=== PATIENT | male | born 1945 | race American Indian/Alaskan Native ===

== ENCOUNTER 2022-01-24 17:51 | Inpatient (IN) | payer MEDICARE ==
[2022-01-24 18:45] LABS: Basophils # (Auto) 0.1 K/mm3 (0.0-0.1); Basophils % (Auto) 0.8 % (0.0-1.8); Eosinophils % (Auto) 0.3 % (0.0-4.3); Hematocrit 24.4 % (35.5-45.6); Hemoglobin 7.8 gm/dl (11.8-15.2); Lymphocytes # (Auto) 0.8 K/mm3 (1.2-5.4); Lymphocytes % (Auto) 8.3 % (13.4-35.0); Mean Corpuscular HGB Conc 32 % (32-34); Monocytes # (Auto) 0.9 K/mm3 (0.0-0.8); Monocytes % (Auto) 8.5 % (0.0-7.3); Platelet Count 341 K/mm3 (140-440); Red Blood Count 3.73 M/mm3 (3.65-5.03); Red Cell Distribution Width 15.5 % (13.2-15.2)
[2022-01-24 18:55] LABS: INR 1.07 (0.87-1.13)
[2022-01-24 18:56] LABS: Partial Thromboplastin Time 52.4 Sec. (24.2-36.6)
[2022-01-24 18:57] LABS: Mean Corpuscular Volume 66 fl (84-94)
--- NOTE | 2022-01-24 19:21 | Cat Scan Report ---
CT BRAIN: 01/24/2022 INDICATION / CLINICAL INFORMATION: neuro deficits <6hrs or sx present upon awakening. No specific information provided COMPARISON: None available. FINDINGS: BRAIN/INTRACRANIAL STRUCTURES: Unenhanced CT images of the brain were obtained. There is no evidence of acute abnormality. Diffuse cerebral atrophy and chronic microangiopathic white matter hypoattenuation is present. There is evidence of old lacunar infarct in the right basal ganglia. EXTRACRANIAL STRUCTURES: Unremarkable. IMPRESSION: No acute abnormality. Chronic and age-related changes. No CT correlate for "neuro deficits, unspecified" Notification attempt: disconnected by ED [address] scans at this location are performed using dose reduction to ALARA by means of automated expos ure control. Signer Name: Ward Middleton MD Signed: 01/24/2022 7:17 PM Workstation Name: [id number]
--- NOTE | 2022-01-24 19:43 | Emergency Department Report ---
Blank Doc - Documentation Documentation: [facility] Consult Note # Demographics Consult Type: Acute Stroke Level 2 (4.5-24 hrs) Patient Location: Emergency Room First Name: Daron Last Name: Loy Date of : 1945 Age: 76 Gender: Male Facility: [facility] Time of Initial Page (Eastern Time): 01/24/2022, 19:09 Time of Return Call (Eastern Time): 01/24/2022, 19:09 # HPI History: 76 year old male with hx of DM, HLD, HTN with symptoms that started last night with vertigo and hearing loss in right ear. Patient states he felt his heart racing last night which is what woke him up. He noticed at that time that he cant hear out of right ear. Denies other symptoms. Last Known Normal: last night # Scores Level of Consciousness 1a: [0] = Alert; keenly responsive LOC Questions 1b: [0] = Answers both questions correctly LOC Commands 1c: [0] = Performs both tasks correctly Best Gaze 2: [0] = Normal Visual 3: [0] = No visual loss Facial Palsy 4: [0] = Normal symmetrical movements Motor Arm Left 5a: [0] = No drift Motor Arm Right 5b: [0] = No drift Motor Leg Left 6a: [1] = Drift Motor Leg Right 6b: [0] = No drift Limb Ataxia 7: [0] = Absent Sensory 8: [0] = Normal Best Language 9: [0] = No aphasia Dysarthria 10: [0] = Normal Extinction and Inattention 11: [0] = No abnormality NIHSS Total: 1 # Exam Additional Exam Findings: right side hearing loss # PMH-FH-SH Past Medical History: Diabetes hyperlipidemia hypertension Social History: non-smoker non-drinker no drugs lives with family # Data Head CT: no bleed per radiologist read # Assessment Impression: Concern for posterior circulation stroke. Recommendation for DAPT however given low HgB, recommend to rule out any GI bleed prior to starting ASA + Plavix. Rule out Afib given hx of palpitations. Holter monitor. # Plan Thrombolytic/Intervention: Possible IA candidate Thrombolytic Exclusion: > 4.5 hours Possible IA Candidate: CTA pending Blood Pressure Management: IV fluid bolus Target Blood Pressure: SBP < 220 DBP < 105 Labs: CBC comprehensive metabolic panel hemoglobin A1c lipid panel troponin TSH ua Imaging: (urgency: STAT): CT Head without contrast CT Angiogram Head and CT Angiogram Neck Imaging: (urgency: routine): MRI Brain without contrast Diagnostic Test: echo with bubble study Medication: aspirin 81 mg PLUS clopidogrel (Plavix) 75 mg for 21 days, then monotherapy therafter start statin with goal of LDL < 70 Other: If patient has any neurological deterioration please call me back immediately permissive hypertension telemetry monitoring I have discussed my recommendations with the referring provider Permissive HTN for 24 hours # Demographics First Name: Daron Last Name: Loy Facility: [facility]
--- NOTE | 2022-01-24 19:53 | XRay Report ---
XR chest 1V ap INDICATION / CLINICAL INFORMATION: Dyspnea. COMPARISON: None available. FINDINGS: SUPPORT DEVICES: None. HEART /PULMONARY VASCULATURE: No significant abnormality. LUNGS / PLEURA: No significant pulmonary or pleural abnormality. No pneumothorax. ADDITIONAL FINDINGS: No significant additional findings. IMPRESSION: 1. No acute findings. Signer Name: Arsh Allen MD Signed: 01/24/2022 7:48 PM Workstation Name: [id number]
[2022-01-24 20:21] LABS: Calcium 10.2 mg/dL (8.4-10.2)
[2022-01-24 20:35] LABS: Albumin 3.5 g/dL (3.9-5)
[2022-01-24 21:03] LABS: BUN/Creatinine Ratio 13; Blood Urea Nitrogen 45 mg/dL (9-20); Calcium 10.2 mg/dL (8.4-10.2); LDL Cholesterol,Direct 90 mg/dL (50-130)
[2022-01-24 21:04] LABS: Chol/HDL Ratio 3.62 %; HDL Cholesterol 43 mg/dL (40-59)
--- NOTE | 2022-01-24 21:25 | Cat Scan Report ---
CT angio head, CT angio neck INDICATION / CLINICAL INFORMATION: stroke sx. TECHNIQUE: CT angiography of the head and neck was performed following administration of 100 cc Omnip aque 350 intravenous contrast. In addition to axial source images, coronal and sagittal thin slab MIP reconstructions were provided. Additional 3-D volumetric reconstructions of vasculature were provide d. All CT scans at this location are performed using CT dose reduction for ALARA by means of automate d exposure control. Calculation of stenosis will be made using direct NASCET criteria. COMPARISON: None available. FINDINGS: VASCULAR FINDINGS: NECK: AORTA: The aorta demonstrates normal branch morphology. No acute aortic pathology. No severe stenosi s of great vessel origins. GREAT VESSELS: No significant abnormality demonstrated involving great vessels. VERTEBRAL ARTERIES: Vertebral origins are patent. The bilateral V2 segments demonstrate no significan t abnormality. RIGHT CAROTID: Calcified plaque in the bifurcation of the right common carotid artery extends within the right proximal cervical segment ICA results in no significant stenosis. LEFT CAROTID: Scattered intimal calcifications noted along the left common carotid artery and at the bifurcation, no significant stenosis. VENOUS STRUCTURES: No significant abnormality of the jugular veins is demonstrated. INTRACRANIAL CIRCULATION: RIGHT ICA: Heterogeneous hypoattenuation within the vessel lumen thought to be artifactual. No dissec tion. No aneurysm. Moderate diffuse intimal calcification of the cavernous and clinoid segments witho ut evidence of severe stenosis. RIGHT PATRICIA: The right anterior cerebral artery demonstrates no evidence of aneurysm, severe stenosis, or occlusion. RIGHT MCA: The right MCA demonstrates no evidence of large vessel occlusion, aneurysm formation, or s evere stenosis. LEFT ICA: Heterogeneous intraluminal hypoattenuation compatible with artifact. No dissection. Moderat e diffuse intimal calcification of the cavernous and clinoid segment without significant stenosis. LEFT PATRICIA: The left PATRICIA demonstrates no evidence of aneurysm formation, occlusion, or severe stenosis. LEFT MCA: The left MCA demonstrates no evidence of large vessel occlusion, aneurysm formation, or sev ere stenosis. ANTERIOR COMMUNICATING ARTERY: No significant abnormality. POSTERIOR COMMUNICATING ARTERIES: The posterior communicating arteries demonstrate no significant abn ormalities. VERTEBRAL CONFLUENCE: The vertebral confluence demonstrates no significant abnormality. BASILAR ARTERY: Basilar artery demonstrates no significant abnormality. Bifurcation and bilateral P1 segments demonstrate patency without evidence of aneurysm formation, significant stenosis, or occlusi on. RIGHT CASH MANAGER: The right CASH MANAGER demonstrates no evidence of occlusion, aneurysm formation, or severe stenosi s. LEFT CASH MANAGER: The left CASH MANAGER demonstrates no evidence of occlusion, aneurysm formation, or severe stenosis. DURAL SINUSES AND CORTICAL DURAL VEINS: The dural sinuses and cortical dural veins demonstrate no sig nificant abnormalities. NONVASCULAR FINDINGS: Small lacunar infarction right basal ganglia. The intracranial contents, intraorbital contents, paran young sinuses, mastoid air cells, soft tissues and musculature of the face, soft tissues and musculatu re of the neck, thyroid, and upper chest demonstrate no significant abnormalities. IMPRESSION: 1. No evidence of large vessel occlusion, aneurysm formation, or severe stenosis involving the anteri or or posterior intracranial circulation. The cervical arterial structures demonstrate no significant abnormalities. 2. The dural sinuses and cortical epidural veins as well as the cervical venous structures demonstrat e no significant abnormality. 3. Nonvascular structures demonstrate no significant abnormality. CODE STROKE Time of Communication (TAMALE MACHINE FEEDER/CDT): 2019 hours Licensed Practitioner Receiving Report: Dr. Lincoln Signer Name: Dioni Lemon II, MD Signed: 01/24/2022 9:21 PM Workstation Name: [id number]
--- NOTE | 2022-01-24 21:25 | Cat Scan Report ---
CT angio head, CT angio neck INDICATION / CLINICAL INFORMATION: stroke sx. TECHNIQUE: CT angiography of the head and neck was performed following administration of 100 cc Omnip aque 350 intravenous contrast. In addition to axial source images, coronal and sagittal thin slab MIP reconstructions were provided. Additional 3-D volumetric reconstructions of vasculature were provide d. All CT scans at this location are performed using CT dose reduction for ALARA by means of automate d exposure control. Calculation of stenosis will be made using direct NASCET criteria. COMPARISON: None available. FINDINGS: VASCULAR FINDINGS: NECK: AORTA: The aorta demonstrates normal branch morphology. No acute aortic pathology. No severe stenosi s of great vessel origins. GREAT VESSELS: No significant abnormality demonstrated involving great vessels. VERTEBRAL ARTERIES: Vertebral origins are patent. The bilateral V2 segments demonstrate no significan t abnormality. RIGHT CAROTID: Calcified plaque in the bifurcation of the right common carotid artery extends within the right proximal cervical segment ICA results in no significant stenosis. LEFT CAROTID: Scattered intimal calcifications noted along the left common carotid artery and at the bifurcation, no significant stenosis. VENOUS STRUCTURES: No significant abnormality of the jugular veins is demonstrated. INTRACRANIAL CIRCULATION: RIGHT ICA: Heterogeneous hypoattenuation within the vessel lumen thought to be artifactual. No dissec tion. No aneurysm. Moderate diffuse intimal calcification of the cavernous and clinoid segments witho ut evidence of severe stenosis. RIGHT PATRICIA: The right anterior cerebral artery demonstrates no evidence of aneurysm, severe stenosis, or occlusion. RIGHT MCA: The right MCA demonstrates no evidence of large vessel occlusion, aneurysm formation, or s evere stenosis. LEFT ICA: Heterogeneous intraluminal hypoattenuation compatible with artifact. No dissection. Moderat e diffuse intimal calcification of the cavernous and clinoid segment without significant stenosis. LEFT PATRICIA: The left PATRICIA demonstrates no evidence of aneurysm formation, occlusion, or severe stenosis. LEFT MCA: The left MCA demonstrates no evidence of large vessel occlusion, aneurysm formation, or sev ere stenosis. ANTERIOR COMMUNICATING ARTERY: No significant abnormality. POSTERIOR COMMUNICATING ARTERIES: The posterior communicating arteries demonstrate no significant abn ormalities. VERTEBRAL CONFLUENCE: The vertebral confluence demonstrates no significant abnormality. BASILAR ARTERY: Basilar artery demonstrates no significant abnormality. Bifurcation and bilateral P1 segments demonstrate patency without evidence of aneurysm formation, significant stenosis, or occlusi on. RIGHT FILL MANAGER: The right FILL MANAGER demonstrates no evidence of occlusion, aneurysm formation, or severe stenosi s. LEFT FILL MANAGER: The left FILL MANAGER demonstrates no evidence of occlusion, aneurysm formation, or severe stenosis. DURAL SINUSES AND CORTICAL DURAL VEINS: The dural sinuses and cortical dural veins demonstrate no sig nificant abnormalities. NONVASCULAR FINDINGS: Small lacunar infarction right basal ganglia. The intracranial contents, intraorbital contents, paran young sinuses, mastoid air cells, soft tissues and musculature of the face, soft tissues and musculatu re of the neck, thyroid, and upper chest demonstrate no significant abnormalities. IMPRESSION: 1. No evidence of large vessel occlusion, aneurysm formation, or severe stenosis involving the anteri or or posterior intracranial circulation. The cervical arterial structures demonstrate no significant abnormalities. 2. The dural sinuses and cortical epidural veins as well as the cervical venous structures demonstrat e no significant abnormality. 3. Nonvascular structures demonstrate no significant abnormality. CODE STROKE Time of Communication (PRACTICE OFFICE ASSOCIATE/CDT): 2019 hours Licensed Practitioner Receiving Report: Dr. Lincoln Signer Name: Dioni Lemon II, MD Signed: 01/24/2022 9:21 PM Workstation Name: [id number]
--- NOTE | 2022-01-24 22:43 | Emergency Department Report ---
ED General Adult HPI - General Chief complaint: Dizziness Stated complaint: HEARING LOSS/WEIGHT LOSS/BALANCE PUI?: No Time Seen by Provider: 01/24/22 19:14 Source: patient Mode of arrival: Ambulatory Limitations: No Limitations - History of Present Illness Initial comments: pt reports he has deminished hearing the right ear since last night. pt reports he experiences severe dizziness with positional changes and changes of his head position. pt denies chest pain or SOB. Pt denies dizziness while sitting in wheelchair in triage. pt has no noted weakness and no reported numbness or tingling. Pt denies visual deficits. pt denies ear pain or prior episodes of hearing loss or vertigo. -: Gradual, hour(s) Radiation: non-radiation Consistency: intermittent Improves with: none Worsens with: none Associated Symptoms: denies: denies other symptoms, confusion, chest pain, cough, diaphoresis, headaches, loss of appetite, malaise, nausea/vomiting - Related Data Home Medications Medication Instructions Recorded Confirmed Last Taken Glimepiride [Amaryl] 4 mg PO BID 01/14/15 01/14/15 01/13/15 Hydralazine HCl [Apresoline TAB] 100 mg PO BID 01/14/15 01/14/15 01/13/15 Lovastatin [Altoprev] 40 mg PO QPM 01/14/15 01/14/15 01/13/15 amLODIPine [Norvasc] 10 mg PO DAILY 01/14/15 01/14/15 01/13/15 metFORMIN [Glucophage] 500 mg PO BID 01/14/15 01/14/15 01/13/15 Previous Rx's Medication Instructions Recorded Last Taken Type Famotidine [Pepcid] 20 mg PO BID 5 Days tablet 01/14/15 Unknown Rx diphenhydrAMINE [Benadryl CAP] 50 mg PO Q8HR 5 Days capsule 01/14/15 Unknown Rx predniSONE [Deltasone] 20 mg PO QDAY 5 Days tab 01/14/15 Unknown Rx Allergies Allergy/AdvReac Type Severity Reaction Status Date / Time Tetracyclines Allergy Unknown Verified 01/14/15 08:42 venom-honey bee Allergy Unknown Verified 01/14/15 08:42 [bee venom (honey bee)] ED Review of Systems ROS: Stated complaint: HEARING LOSS/WEIGHT LOSS/BALANCE Other details as noted in HPI Constitutional: denies: chills, fever Eyes: denies: eye pain, eye discharge, vision change ENT: denies: ear pain, throat pain Respiratory: denies: cough, shortness of breath, wheezing Cardiovascular: denies: chest pain, palpitations Endocrine: no symptoms reported Gastrointestinal: denies: abdominal pain, nausea, diarrhea Genitourinary: denies: urgency, dysuria Musculoskeletal: denies: back pain, joint swelling, arthralgia Skin: denies: rash, lesions Neurological: denies: headache, weakness, paresthesias Psychiatric: denies: anxiety, depression Hematological/Lymphatic: denies: easy bleeding, easy bruising ED Past Medical Hx - Past Medical History Hx Hypertension: Yes Hx Diabetes: Yes (diet controlled) - Social History Smoking Status: Never Smoker - Medications Home Medications: Home Medications Medication Instructions Recorded Confirmed Last Taken Type Famotidine [Pepcid] 20 mg PO BID 5 Days tablet 01/14/15 Unknown Rx Glimepiride [Amaryl] 4 mg PO BID 01/14/15 01/14/15 01/13/15 History Hydralazine HCl [Apresoline TAB] 100 mg PO BID 01/14/15 01/14/15 01/13/15 History Lovastatin [Altoprev] 40 mg PO QPM 01/14/15 01/14/15 01/13/15 History amLODIPine [Norvasc] 10 mg PO DAILY 01/14/15 01/14/15 01/13/15 History diphenhydrAMINE [Benadryl CAP] 50 mg PO Q8HR 5 Days capsule 01/14/15 Unknown Rx metFORMIN [Glucophage] 500 mg PO BID 01/14/15 01/14/15 01/13/15 History predniSONE [Deltasone] 20 mg PO QDAY 5 Days tab 01/14/15 Unknown Rx ED Physical Exam - General Limitations: No Limitations General appearance: alert, in no apparent distress - Head Head exam: Present: atraumatic, normocephalic - Eye Eye exam: Present: normal appearance - ENT ENT exam: Present: mucous membranes moist - Neck Neck exam: Present: normal inspection - Respiratory Respiratory exam: Present: normal lung sounds bilaterally. Absent: respiratory distress - Cardiovascular Cardiovascular Exam: Present: regular rate, normal rhythm. Absent: systolic murmur, diastolic murmur, rubs, gallop - GI/Abdominal GI/Abdominal exam: Present: soft, normal bowel sounds - Rectal Rectal exam: Present: deferred - Extremities Exam Extremities exam: Present: normal inspection - Back Exam Back exam: Present: normal inspection - Neurological Exam Neurological exam: Present: alert, oriented X3 - Psychiatric Psychiatric exam: Present: normal affect, normal mood - Skin Skin exam: Present: warm, dry, intact, normal color. Absent: rash ED Course Vital Signs 01/24/22 18:20 Temperature 98.3 F Pulse Rate 97 H Respiratory 18 Rate Blood Pressure 159/62 O2 Sat by Pulse 98 Oximetry ED Medical Decision Making - Lab Data Result diagrams: 01/24/22 18:36 01/24/22 19:00 - EKG Data -: EKG Interpreted by Me EKG shows normal: sinus rhythm - Radiology Data Radiology results: report reviewed, image reviewed - Medical Decision Making stroke alert , CT head negative neurology assessed patient will admit after negative CTA for stroke work up Critical care attestation.: If time is entered above; I have spent that time in minutes in the direct care of this critically ill patient, excluding procedure time. ED Disposition Clinical Impression: Dizziness, CVA (cerebral vascular accident) Disposition: ADMITTED INPATIENT Is pt being admited?: Yes Does the pt Need Aspirin: No Condition: Stable Forms: Accompanied Note
[2022-01-24] MEDS ORDERED: MORPHINE 4 MG/1 ML INJ IV PRN ×2 (22:55)
[2022-01-24] MEDS ORDERED: MORPHINE 2 MG/1 ML INJ IV PRN ×2 (22:55)
[2022-01-24] MEDS ORDERED: PROMETHAZINE 25 MG RECT SUPP PR PRN (22:55)
[2022-01-24] MEDS ORDERED: ACETAMINOPHEN 325 MG TAB PO PRN ×2 (22:55)
[2022-01-24] MEDS ORDERED: ONDANSETRON 4 MG/2 ML INJ IV PRN ×2 (22:55)
[2022-01-24] MEDS ORDERED: MAGNESIUM HYDROXIDE (MOM) ORAL LIQD UDC PO PRN ×2 (22:55)
[2022-01-24] MEDS ORDERED: METOCLOPRAMIDE 10 MG TAB PO PRN (22:55)
--- NOTE | 2022-01-24 23:13 | History and Physical Report ---
History of Present Illness Date of examination: 01/24/22 Date of admission: 01/24/2022 Chief complaint: Dizziness History of present illness: 76-year-old male with known history of hypertension and diet-controlled diabetes mellitus presents to the emergency room today complaining of loss of hearing on the right side of his ear. He has also been having severe dizziness whenever he changes position. He denies any headache, no fever or chills, no diaphoresis. Denies any chest pain or shortness of breath. No nausea vomiting no abdominal pain. Denies any blurry vision, denies any weakness or tingling sensation in any of the extremities. Symptoms have been ongoing for about 24 hours. Work-up in the emergency room today, CT of the head shows chronic and age- related changes otherwise no acute findings. CTA head and neck were unremarkable Chest x-ray shows no acute findings. Consult was placed to the teleneurologist by the ER physician and recommendation was to have patient worked up for possible CVA. Past History Past Medical History: diabetes (Diet Controlled), hypertension Past Surgical History: No surgical history Social history: no significant social history Medications and Allergies Allergies Allergy/AdvReac Type Severity Reaction Status Date / Time Tetracyclines Allergy Unknown Verified 01/14/15 08:42 venom-honey bee Allergy Unknown Verified 01/14/15 08:42 [bee venom (honey bee)] Home Medications Medication Instructions Recorded Confirmed Last Taken Type Famotidine [Pepcid] 20 mg PO BID 5 Days tablet 01/14/15 Unknown Rx Glimepiride [Amaryl] 4 mg PO BID 01/14/15 01/14/15 01/13/15 History Hydralazine HCl [Apresoline TAB] 100 mg PO BID 01/14/15 01/14/15 01/13/15 History Lovastatin [Altoprev] 40 mg PO QPM 01/14/15 01/14/15 01/13/15 History amLODIPine [Norvasc] 10 mg PO DAILY 01/14/15 01/14/15 01/13/15 History diphenhydrAMINE [Benadryl CAP] 50 mg PO Q8HR 5 Days capsule 01/14/15 Unknown Rx metFORMIN [Glucophage] 500 mg PO BID 01/14/15 01/14/15 01/13/15 History predniSONE [Deltasone] 20 mg PO QDAY 5 Days tab 01/14/15 Unknown Rx Active Meds: Active Medications Acetaminophen (Acetaminophen 325 Mg Tab) 650 mg PO Q4H PRN PRN Reason: Pain MILD(1-3)/Fever >100.5/TINEO Acetaminophen (Acetaminophen 325 Mg Tab) 650 mg PO Q4H PRN PRN Reason: Pain, Mild (1-3) Aspirin (Aspirin 325 Mg Tab) 325 mg PO QDAY ROBERTO CARLOS Atorvastatin Calcium (Atorvastatin 40 Mg Tab) 40 mg PO QHS ROBERTO CARLOS Bisacodyl (Bisacodyl 10 Mg Rect Supp) 10 mg [place] QDAY PRN PRN Reason: Constipation Heparin Sodium (Porcine) (Heparin 5,000 Unit/1 Ml Vial) 5,000 unit SUB-Q Q8HR ROBERTO CARLOS Magnesium Hydroxide (Magnesium Hydroxide (Mom) Oral Liqd Udc) 30 ml PO Q4H PRN PRN Reason: Constipation Magnesium Hydroxide (Magnesium Hydroxide (Mom) Oral Liqd Udc) 30 ml PO Q4H PRN PRN Reason: Constipation Metoclopramide HCl (Metoclopramide 10 Mg Tab) 10 mg PO Q6H PRN PRN Reason: Nausea And Vomiting Morphine Sulfate (Morphine 2 Mg/1 Ml Inj) 2 mg IV Q4H PRN PRN Reason: Pain, Moderate (4-6) Morphine Sulfate (Morphine 4 Mg/1 Ml Inj) 4 mg IV Q4H PRN PRN Reason: Pain , Severe (7-10) Morphine Sulfate (Morphine 2 Mg/1 Ml Inj) 2 mg IV Q4H PRN PRN Reason: Pain, Moderate (4-6) Morphine Sulfate (Morphine 4 Mg/1 Ml Inj) 4 mg IV Q4H PRN PRN Reason: Pain , Severe (7-10) Ondansetron HCl (Ondansetron 4 Mg/2 Ml Inj) 4 mg IV Q8H PRN PRN Reason: Nausea And Vomiting Ondansetron HCl (Ondansetron 4 Mg/2 Ml Inj) 4 mg IV Q8H PRN PRN Reason: Nausea And Vomiting Promethazine HCl (Promethazine 25 Mg Rect Supp) 25 mg [place] Q6H PRN PRN Reason: Nausea And Vomiting Sodium Chloride (Sodium Chloride 0.9% 10 Ml Flush Syringe) 10 ml IV BID ROBERTO CARLOS Sodium Chloride (Sodium Chloride 0.9% 10 Ml Flush Syringe) 10 ml IV PRN PRN PRN Reason: LINE FLUSH Sodium Chloride (Sodium Chloride 0.9% 10 Ml Flush Syringe) 10 ml INJ PRN PRN PRN Reason: LINE FLUSH Review of Systems Constitutional: no fever, no chills Ears, nose, mouth and throat: no nasal congestion, no sore throat Cardiovascular: no chest pain, no palpitations Respiratory: no cough, no shortness of breath Gastrointestinal: no abdominal pain, no nausea, no vomiting, no diarrhea Genitourinary Male: no dysuria, no hematuria, no nocturia Musculoskeletal: no neck pain, no low back pain Integumentary: no rash, no pruritis Neurological: other (Dizziness), no headaches, no confusion Psychiatric: no anxiety, no depression Endocrine: no polyphagia, no polydipsia, no polyuria, no nocturia Exam - Constitutional Vitals: Temp Pulse Resp BP Pulse Ox 98.3 F 97 H 18 159/62 98 01/24/22 18:20 01/24/22 18:20 01/24/22 18:20 01/24/22 18:20 01/24/22 18:20 General appearance: Present: no acute distress, well-nourished - EENT Eyes: Present: PERRL, EOM intact. Absent: scleral icterus ENT: hearing intact, clear oral mucosa, dentition normal - Neck Neck: Present: supple, normal ROM - Respiratory Respiratory effort: normal Respiratory: bilateral: CTA - Cardiovascular Rhythm: regular Heart Sounds: Present: S1 & S2, gallop. Absent: systolic murmur, diastolic murmur, rub, click - Extremities Extremities: no ischemia, pulses intact, pulses symmetrical, No edema, normal temperature, normal color, Full ROM Peripheral Pulses: within normal limits - Abdominal General gastrointestinal: Present: soft, non-tender, non-distended, normal bowel sounds. Absent: mass - Integumentary Integumentary: Present: clear, warm, dry. Absent: rash - Musculoskeletal Musculoskeletal: strength equal bilaterally - Psychiatric Psychiatric: appropriate mood/affect, intact judgment & insight, memory intact, cooperative - Neurologic Neurologic: CNII-XII intact, no focal deficits, moves all extremities HEART Score - HEART Score Troponin: Troponin T 0.037 ng/mL (0.00-0.029) H 01/24/22 18:36 Results - Labs CBC & Chem 7: 01/24/22 18:36 01/25/22 04:39 Labs: Abnormal lab results 01/24/22 01/24/22 01/24/22 Range/Units 18:36 18:36 18:36 Hgb 7.8 L (11.8-15.2) gm/dl Hct 24.4 L (35.5-45.6) % MCV 66 L (84-94) fl MCH 21 L (28-32) pg RDW 15.5 H (13.2-15.2) % Lymph % (Auto) 8.3 L (13.4-35.0) % [place] % (Auto) 8.5 H (0.0-7.3) % Lymph # (Auto) 0.8 L (1.2-5.4) K/mm3 [place] # (Auto) 0.9 H (0.0-0.8) K/mm3 Seg Neutrophils % 82.1 H (40.0-70.0) % Seg Neutrophils # 8.3 H (1.8-7.7) K/mm3 PT 15.1 H (12.2-14.9) Sec. APTT 52.4 H (24.2-36.6) Sec. Sodium 132 L (137-145) mmol/L Chloride 96 L (98-107) mmol/L Carbon Dioxide 17 L (22-30) mmol/L BUN 45 H (9-20) mg/dL Creatinine 3.5 H (0.8-1.3) mg/dL Glucose 135 H (75-100) mg/dL Troponin T 0.037 H (0.00-0.029) ng/mL Albumin (3.9-5) g/dL 01/24/22 Range/Units 19:00 Hgb (11.8-15.2) gm/dl Hct (35.5-45.6) % MCV (84-94) fl MCH (28-32) pg RDW (13.2-15.2) % Lymph % (Auto) (13.4-35.0) % [place] % (Auto) (0.0-7.3) % Lymph # (Auto) (1.2-5.4) K/mm3 [place] # (Auto) (0.0-0.8) K/mm3 Seg Neutrophils % (40.0-70.0) % Seg Neutrophils # (1.8-7.7) K/mm3 PT (12.2-14.9) Sec. APTT (24.2-36.6) Sec. Sodium 132 L (137-145) mmol/L Chloride 96.0 L (98-107) mmol/L Carbon Dioxide 17 L (22-30) mmol/L BUN 45 H (9-20) mg/dL Creatinine 3.5 H (0.8-1.3) mg/dL Glucose 135 H (75-100) mg/dL Troponin T (0.00-0.029) ng/mL Albumin 3.5 L (3.9-5) g/dL Assessment and Plan Assessment: 1.Dizziness 2.Hypertension 3.Diabetes Mellitus - diet Conrolled 4.VIRI Plan: 1.Schedule patient for Carotid doppler, MRI brain and Echo. 2.Neurology consult for evaluation and recommendations 3.Continue on routine home medications 3.Monitor BUN/Creatinine 4.Nephrology consult for evaluation and recommendation. DVT Prophylaxis: Subcutaneous heparin Code Status: Full code
[2022-01-25 06:02] LABS: Calcium 9.2 mg/dL (8.4-10.2)
[2022-01-25 08:20] LABS: Amphetamine Screen,Urine Negative; Benzodiazepines Screen,Urine Negative; Cocaine Screen,Urine Negative; Methadone Screen,Urine Negative; Opiate Screen,Urine Negative
[2022-01-25 08:23] LABS: Color,Urine Yellow (Yellow)
--- NOTE | 2022-01-25 09:04 | Ultrasound Report ---
ULTRASOUND RENAL INDICATION / CLINICAL INFORMATION: VIRI. COMPARISON: None available. FINDINGS: RIGHT KIDNEY: Length = 9.6 cm. - Echogenicity: Mildly increased. - Parenchymal Thickness: Normal. - Hydronephrosis: None. - Cyst / Mass: None. - Stones: None seen. LEFT KIDNEY: Length = 10.7 cm. - Echogenicity: Mildly increased. - Parenchymal Thickness: Normal. - Hydronephrosis: None. - Cyst / Mass: None. - Stones: None seen. URINARY BLADDER: Mild distention. FREE FLUID: None. ADDITIONAL FINDINGS: Prominent prostate measuring 4.8 x 3.8 x 2.9 cm. IMPRESSION: 1. Mild increased cortical echogenicity compatible with chronic medical renal disease. 2. Prominent prostate with mild bladder distention. Signer Name: Moise Simmons MD Signed: 01/25/2022 9:00 AM Workstation Name: [id number]
[2022-01-25 09:12] LABS: Cannabinoid Screen,Urine Positive
--- NOTE | 2022-01-25 09:55 | Vascular Lab Report ---
"DUPLEX DOPPLER ULTRASOUND CAROTID, BILATERAL INDICATION: stroke. FINDINGS: RIGHT CAROTID: Large atherosclerotic plaque. Right CCA velocity: 111 cm/sec. Right ICA peak systolic velocity: 122 cm/sec. ICA/CCA PSV Ratio: 1.1. Right Vertebral Artery: Antegrade flow. LEFT CAROTID: Moderate to large atherosclerotic plaque. Left CCA velocity: 118 cm/sec. Left ICA peak systolic velocity: 121 cm/sec. ICA/CCA PSV Ratio: 1.0. Left Vertebral Artery: Antegrade flow. IMPRESSION: 1. Right Internal Carotid Artery: Less than 50% diameter stenosis. 2. Left Internal Carotid Artery: Less than 50% diameter stenosis. #3. Moderate to large atherosclerotic plaque identified within both carotid bulbs bilaterally. Velocity criteria are extrapolated from diameter data as defined by the Society of Radiologists in Ul trasound Consensus Conference, Radiology 2003; 229;340-346. Degree of || ICA PSV || Plaque || ICA/CCA Stenosis (%) || (cm/sec) || estimate (%) || PSV Ratio - Normal...............<125..............None.................<2.0 - <50....................<125..............<50....................<2.0 - 50-69................125-230.........>50....................2.0-4.0 - >70 but <100....>230..............>50....................>4.0 - Near...................High, low, .....visible................variable occlusion or none - Total...................None.............visible;................N/A occlusion no lumen Signer Name: Camron Sin MD Signed: 01/25/2022 9:51 AM Workstation Name: [email or web address]"
--- NOTE | 2022-01-25 10:27 | Consultation ---
History of Present Illness - Reason for Consult Consult date: 01/25/22 acute renal failure - History of Present Illness Mr. Granado is a 76yo with type II DM, hypertension who presented to the ED with c/o hearing loss - right ear. He also reports dizziness impairing mobility. He states that dizziness occurs with standing and turning head. He denies headache, paresthesia, chest pain and palpitations. Labs at admission notable for SCr 3.5mg/dL prompting nephrology consultation. He denies a prior hx of kidney disease. He is followed by PCP, Dr. Saenz, as an outpatient. Past History Past Medical History: diabetes (Diet Controlled), hypertension Past Surgical History: No surgical history Social history: no significant social history Medications and Allergies Allergies Allergy/AdvReac Type Severity Reaction Status Date / Time Tetracyclines Allergy Unknown Verified 01/14/15 08:42 venom-honey bee Allergy Unknown Verified 01/14/15 08:42 [bee venom (honey bee)] Home Medications Medication Instructions Recorded Confirmed Last Taken Type Famotidine [Pepcid] 20 mg PO BID 5 Days tablet 01/14/15 01/25/22 Unknown Rx Glimepiride [Amaryl] 4 mg PO BID 01/14/15 01/25/22 01/13/15 History Hydralazine HCl [Apresoline TAB] 100 mg PO BID 01/14/15 01/25/22 01/23/22 History Lovastatin [Altoprev] 40 mg PO BID 01/14/15 01/25/22 01/23/22 History amLODIPine [Norvasc] 10 mg PO DAILY 01/14/15 01/25/22 01/23/22 History diphenhydrAMINE [Benadryl CAP] 50 mg PO Q8HR 5 Days capsule 01/14/15 01/25/22 Unknown Rx metFORMIN [Glucophage] 500 mg PO BID 01/14/15 01/25/22 01/13/15 History predniSONE [Deltasone] 20 mg PO QDAY 5 Days tab 01/14/15 01/25/22 Unknown Rx Active Meds: Active Medications Acetaminophen (Acetaminophen 325 Mg Tab) 650 mg PO Q4H PRN PRN Reason: Pain, Mild (1-3) Aspirin (Aspirin 325 Mg Tab) 325 mg PO QDAY ROBERTO CARLOS Atorvastatin Calcium (Atorvastatin 40 Mg Tab) 40 mg PO QHS ROBERTO CARLOS Bisacodyl (Bisacodyl 10 Mg Rect Supp) 10 mg [place] QDAY PRN PRN Reason: Constipation Heparin Sodium (Porcine) (Heparin 5,000 Unit/1 Ml Vial) 5,000 unit SUB-Q Q8HR ROBERTO CARLOS Magnesium Hydroxide (Magnesium Hydroxide (Mom) Oral Liqd Udc) 30 ml PO Q4H PRN PRN Reason: Constipation Metoclopramide HCl (Metoclopramide 10 Mg Tab) 5 mg PO Q6H PRN PRN Reason: Nausea And Vomiting Morphine Sulfate (Morphine 2 Mg/1 Ml Inj) 2 mg IV Q4H PRN PRN Reason: Pain, Moderate (4-6) Morphine Sulfate (Morphine 4 Mg/1 Ml Inj) 4 mg IV Q4H PRN PRN Reason: Pain , Severe (7-10) Ondansetron HCl (Ondansetron 4 Mg/2 Ml Inj) 4 mg IV Q8H PRN PRN Reason: Nausea And Vomiting Promethazine HCl (Promethazine 25 Mg Rect Supp) 25 mg [place] Q6H PRN PRN Reason: Nausea And Vomiting Sodium Chloride (Sodium Chloride 0.9% 10 Ml Flush Syringe) 10 ml IV BID ROBERTO CARLOS Sodium Chloride (Sodium Chloride 0.9% 10 Ml Flush Syringe) 10 ml IV PRN PRN PRN Reason: LINE FLUSH Review of Systems All systems: negative Exam - Vital Signs Vital signs: Vital Signs Temp Pulse Resp BP Pulse Ox 98.3 F 97 H 18 159/62 98 01/24/22 18:20 01/24/22 18:20 01/24/22 18:20 01/24/22 18:20 01/24/22 18:20 - General Appearance General appearance: well-developed, well-nourished EENT: ATNC Respiratory: Clear to Ascultation Heart: regular, S1S2 Gastrointestinal: Present: normal. Absent: tenderness, distended Integumentary: no rash, warm and dry Neurologic: alert and oriented x3 Musculoskeletal: Present: other (no edema) Psychiatric: cooperative Results - Lab Results 01/24/22 18:36 01/25/22 04:39 Most recent lab results Calcium 9.2 mg/dL (8.4-10.2) 01/25/22 04:39 Assessment and Plan Impression: * Acute kidney injury - unclear etiology; likely prerenal * Dizziness * Type II diabetes mellitus * Hypertension * Enlarged prostate Plan: * No acute indication for renal replacement therapy at this time. Continue conservative management * Renal ultrasound reviewed - prostate enlarged, mild bladder distension, no hydro * IVF for gentle hydration * Neuro work up in progress * Dose medications for renal function * Avoid potential nephrotoxins * AM labs * Baseline renal function unknown - will attempt to obtain outpatient labs from PCP
--- NOTE | 2022-01-25 11:08 | Progress Note ---
Assessment and Plan Assessment and plan: 76-year-old male with known history of hypertension and diet-controlled diabetes mellitus presents to the emergency room today complaining of loss of hearing on the right side of his ear. He has also been having severe dizziness whenever he changed position. Work-up in the emergency room with CT of the head showing chronic and age-related changes otherwise no acute findings. CTA head and neck were unremarkable. Chest x-ray shows no acute findings. Consult was placed to the teleneurologist by the ER physician and recommendation was to have patient worked up for possible CVA. Dizziness Hypertension Diabetes mellitus type 2 Acute kidney injury Elevated troponin Marijuana use 01/25/2022. Follow-up carotid Doppler, MRI brain and echocardiogram. Neurology consultation pending. Patient's creatinine is elevated at 3.5 with no baseline creatinine to compare. Renal ultrasound reveals mild increased cortical echogenicity compatible with chronic medical renal disease, prominent prostate with mild bladder distention. Urinalysis negative. Await nephrology consultation. Elevated troponin likely secondary to renal insufficiency. Patient with no complaints of chest pain. Consider cardiology consultation History Interval history: No new issues overnight. Hospitalist Physical - Constitutional Vitals: Temp Pulse Resp BP Pulse Ox 98.3 F 88 16 117/59 100 01/24/22 18:20 01/25/22 08:31 01/25/22 08:31 01/25/22 08:31 01/25/22 08:31 General appearance: Present: no acute distress, well-nourished - EENT Eyes: Present: PERRL, EOM intact ENT: hearing intact, clear oral mucosa, dentition normal - Neck Neck: Present: supple, normal ROM - Respiratory Respiratory effort: normal Respiratory: bilateral: CTA - Cardiovascular Rhythm: regular Heart Sounds: Present: S1 & S2. Absent: gallop, rub - Extremities Extremities: no ischemia, No edema, Full ROM - Abdominal General gastrointestinal: soft, non-tender, non-distended, normal bowel sounds - Integumentary Integumentary: Present: clear, warm, dry - Neurologic Neurologic: CNII-XII intact, moves all extremities HEART Score - HEART Score Troponin: Troponin T 0.037 ng/mL (0.00-0.029) H 01/24/22 18:36 Results - Labs CBC & Chem 7: 01/24/22 18:36 01/25/22 04:39 Labs: Laboratory Last Values WBC 10.1 K/mm3 (4.5-11.0) 01/24/22 18:36 RBC 3.73 M/mm3 (3.65-5.03) 01/24/22 18:36 Hgb 7.8 gm/dl (11.8-15.2) L 01/24/22 18:36 Hct 24.4 % (35.5-45.6) L 01/24/22 18:36 MCV 66 fl (84-94) L 01/24/22 18:36 MCH 21 pg (28-32) L 01/24/22 18:36 MCHC 32 % (32-34) 01/24/22 18:36 RDW 15.5 % (13.2-15.2) H 01/24/22 18:36 Plt Count 341 K/mm3 (140-440) 01/24/22 18:36 Lymph % (Auto) 8.3 % (13.4-35.0) L 01/24/22 18:36 [place] % (Auto) 8.5 % (0.0-7.3) H 01/24/22 18:36 Eos % (Auto) 0.3 % (0.0-4.3) 01/24/22 18:36 Baso % (Auto) 0.8 % (0.0-1.8) 01/24/22 18:36 Lymph # (Auto) 0.8 K/mm3 (1.2-5.4) L 01/24/22 18:36 [place] # (Auto) 0.9 K/mm3 (0.0-0.8) H 01/24/22 18:36 Eos # (Auto) 0.0 K/mm3 (0.0-0.4) 01/24/22 18:36 Baso # (Auto) 0.1 K/mm3 (0.0-0.1) 01/24/22 18:36 Seg Neutrophils % 82.1 % (40.0-70.0) H 01/24/22 18:36 Seg Neutrophils # 8.3 K/mm3 (1.8-7.7) H 01/24/22 18:36 PT 15.1 Sec. (12.2-14.9) H 01/24/22 18:36 INR 1.07 (0.87-1.13) 01/24/22 18:36 APTT 52.4 Sec. (24.2-36.6) H 01/24/22 18:36 Thrombin Time 15.7 Sec. (15.1-19.6) 01/24/22 18:36 Sodium 134 mmol/L (137-145) L 01/25/22 04:39 Potassium 3.7 mmol/L (3.6-5.0) 01/25/22 04:39 Chloride 97.5 mmol/L (98-107) L 01/25/22 04:39 Carbon Dioxide 23 mmol/L (22-30) 01/25/22 04:39 Anion Gap 17 mmol/L 01/25/22 04:39 BUN 43 mg/dL (9-20) H 01/25/22 04:39 Creatinine 3.5 mg/dL (0.8-1.3) H 01/25/22 04:39 Estimated GFR 21 ml/min 01/25/22 04:39 BUN/Creatinine Ratio 12 % 01/25/22 04:39 Glucose 85 mg/dL (75-100) 01/25/22 04:39 Calcium 9.2 mg/dL (8.4-10.2) 01/25/22 04:39 Total Bilirubin 0.50 mg/dL (0.1-1.2) 01/24/22 19:00 AST 35 units/L (5-40) 01/24/22 19:00 ALT 13 units/L (7-56) 01/24/22 19:00 Alkaline Phosphatase 78 units/L (35-129) 01/24/22 19:00 Troponin T 0.037 ng/mL (0.00-0.029) H 01/24/22 18:36 Total Protein 7.4 g/dL (6.3-8.2) 01/24/22 19:00 Albumin 3.5 g/dL (3.9-5) L 01/24/22 19:00 Albumin/Globulin Ratio 0.0 % 01/24/22 19:00 Triglycerides 95 mg/dL (2-149) 01/24/22 18:36 Cholesterol 156 mg/dL (50-199) 01/24/22 18:36 LDL Cholesterol Direct 90 mg/dL (50-130) 01/24/22 18:36 HDL Cholesterol 43 mg/dL (40-59) 01/24/22 18:36 Cholesterol/HDL Ratio 3.62 % 01/24/22 18:36 Urine Color Yellow (Yellow) 01/25/22 08:01 Urine Turbidity Clear (Clear) 01/25/22 08:01 Specific Fisher (Man) 1.010 (1.003-1.030) 01/25/22 08:01 Ur Protein (Man) 1+ mg/dL (Negative) 01/25/22 08:01 Ur Ketones (Man) 5mg/dl (Negative) 01/25/22 08:01 Urine Bilirubin (Man) Negative (Negative) 01/25/22 08:01 Urine WBC (Auto) 5.0 /HPF (0.0-6.0) 01/25/22 08:01 Urine RBC (Auto) 53.0 /HPF (0.0-6.0) 01/25/22 08:01 U Epithel Cells (Auto) < 1.0 /HPF (0-13.0) 01/25/22 08:01 Urine RBC (Manual) 2+ (Negative) 01/25/22 08:01 Urine Opiates Screen Negative 01/25/22 08:01 Urine Methadone Screen Negative 01/25/22 08:01 Ur Barbiturates Screen Negative 01/25/22 08:01 Ur Phencyclidine Scrn Negative 01/25/22 08:01 Ur Amphetamines Screen Negative 01/25/22 08:01 U Benzodiazepines Scrn Negative 01/25/22 08:01 Urine Cocaine Screen Negative 01/25/22 08:01 U Marijuana (THC) Screen Positive 01/25/22 08:01 Drugs of Abuse Note Disclamer 01/25/22 08:01 Active Medications - Current Medications Current Medications: Generic Name Dose Route Start Last Admin Trade Name Freq PRN Reason Stop Dose Admin Acetaminophen 650 mg 01/24/22 22:55 Acetaminophen 325 Mg Tab PO Q4H PRN Pain, Mild (1-3) Aspirin 325 mg 01/25/22 10:00 Aspirin 325 Mg Tab PO QDAY [facility] Atorvastatin Calcium 40 mg 01/25/22 22:00 Atorvastatin 40 Mg Tab PO QHS ROBERTO CARLOS Bisacodyl 10 mg 01/24/22 22:55 Bisacodyl 10 Mg Rect Supp [place] QDAY PRN Constipation Heparin Sodium (Porcine) 5,000 unit 01/25/22 06:00 Heparin 5,000 Unit/1 Ml Vial SUB-Q Q8HR ROBERTO CARLOS Magnesium Hydroxide 30 ml 01/24/22 22:55 Magnesium Hydroxide (Mom) Oral Liqd Udc PO Q4H PRN Constipation Metoclopramide HCl 5 mg 01/24/22 22:55 Metoclopramide 10 Mg Tab PO Q6H PRN Nausea And Vomiting Morphine Sulfate 2 mg 01/24/22 22:55 Morphine 2 Mg/1 Ml Inj IV Q4H PRN Pain, Moderate (4-6) Morphine Sulfate 4 mg 01/24/22 22:55 Morphine 4 Mg/1 Ml Inj IV Q4H PRN Pain , Severe (7-10) Ondansetron HCl 4 mg 01/24/22 22:55 Ondansetron 4 Mg/2 Ml Inj IV Q8H PRN Nausea And Vomiting Promethazine HCl 25 mg 01/24/22 22:55 Promethazine 25 Mg Rect Supp [place] Q6H PRN Nausea And Vomiting Sodium Chloride 10 ml 01/25/22 10:00 Sodium Chloride 0.9% 10 Ml Flush Syringe IV BID ROBERTO CARLOS Sodium Chloride 10 ml 01/24/22 22:55 Sodium Chloride 0.9% 10 Ml Flush Syringe IV PRN PRN LINE FLUSH
[2022-01-25] MEDS: ASPIRIN 325 MG TAB PO SCH (12:18)
[2022-01-25] MEDS: HEPARIN 5,000 UNIT/1 ML VIAL SUB-Q SCH ×3 (12:18→22:25)
--- NOTE | 2022-01-25 13:18 | Magnetic Resonance Report ---
MR brain wo con INDICATION / CLINICAL INFORMATION: stroke , lower ext. weakness. TECHNIQUE: Multiplanar, multisequence MR images of the brain were obtained. COMPARISON: None available. FINDINGS: INTRACRANIAL: No restricted diffusion. No hemorrhage. Ventricular caliber is normal. No extra-axial c ollection. No mass. No herniation. Major intracranial vascular flow voids are preserved. Moderate qu antity of periventricular and centrum semiovale T2 white matter hyperintensities most consistent with moderate sequela of chronic microvascular disease. ORBITS: No significant abnormality of visualized orbits. SINUSES / MASTOIDS: Moderate mastoid effusions, commonly related to eustachian tube dysfunction. Mild mucosal thickening of ethmoid air cells. ADDITIONAL FINDINGS: None. IMPRESSION: 1. No acute infarction. No significant intracranial abnormality. Signer Name: Marlon Winter MD Signed: 01/25/2022 1:14 PM Workstation Name: [id number]
--- NOTE | 2022-01-25 16:12 | Consultation ---
History of Present Illness Consult date: 01/25/22 Reason for Consult: cva Chief complaint: ringing and hearing loss of my right ear History of present illness: 76 yo male with htn, dm, who presents with progressive tinnitus and loss of hearing involving the right ear with onset earlier last week. He notes feeling dizzy after he stands up and he needs to catch or balance himself for 40 seconds before he can walk (after standing up). He denies any dizziness when not moving and he denies any headache. Past History Past Medical History: diabetes (Diet Controlled), hypertension Past Surgical History: No surgical history Social history: no significant social history Medications and Allergies Allergies Allergy/AdvReac Type Severity Reaction Status Date / Time Tetracyclines Allergy Unknown Verified 01/14/15 08:42 venom-honey bee Allergy Unknown Verified 01/14/15 08:42 [bee venom (honey bee)] Home Medications Medication Instructions Recorded Confirmed Last Taken Type Famotidine [Pepcid] 20 mg PO BID 5 Days tablet 01/14/15 01/25/22 Unknown Rx Glimepiride [Amaryl] 4 mg PO BID 01/14/15 01/25/22 01/13/15 History Hydralazine HCl [Apresoline TAB] 100 mg PO BID 01/14/15 01/25/22 01/23/22 History Lovastatin [Altoprev] 40 mg PO BID 01/14/15 01/25/22 01/23/22 History amLODIPine [Norvasc] 10 mg PO DAILY 01/14/15 01/25/22 01/23/22 History diphenhydrAMINE [Benadryl CAP] 50 mg PO Q8HR 5 Days capsule 01/14/15 01/25/22 Unknown Rx metFORMIN [Glucophage] 500 mg PO BID 01/14/15 01/25/22 01/13/15 History predniSONE [Deltasone] 20 mg PO QDAY 5 Days tab 01/14/15 01/25/22 Unknown Rx Active Meds: Active Medications Acetaminophen (Acetaminophen 325 Mg Tab) 650 mg PO Q4H PRN PRN Reason: Pain, Mild (1-3) Aspirin (Aspirin 325 Mg Tab) 325 mg PO QDAY ROBERTO CARLOS Last Admin: 01/25/22 12:18 Dose: 325 mg Atorvastatin Calcium (Atorvastatin 40 Mg Tab) 40 mg PO QHS ROBERTO CARLOS Bisacodyl (Bisacodyl 10 Mg Rect Supp) 10 mg AR QDAY PRN PRN Reason: Constipation Heparin Sodium (Porcine) (Heparin 5,000 Unit/1 Ml Vial) 5,000 unit SUB-Q Q8HR [facility] Last Admin: 01/25/22 15:05 Dose: Not Given Magnesium Hydroxide (Magnesium Hydroxide (Mom) Oral Liqd Udc) 30 ml PO Q4H PRN PRN Reason: Constipation Metoclopramide HCl (Metoclopramide 10 Mg Tab) 5 mg PO Q6H PRN PRN Reason: Nausea And Vomiting Morphine Sulfate (Morphine 2 Mg/1 Ml Inj) 2 mg IV Q4H PRN PRN Reason: Pain, Moderate (4-6) Morphine Sulfate (Morphine 4 Mg/1 Ml Inj) 4 mg IV Q4H PRN PRN Reason: Pain , Severe (7-10) Ondansetron HCl (Ondansetron 4 Mg/2 Ml Inj) 4 mg IV Q8H PRN PRN Reason: Nausea And Vomiting Promethazine HCl (Promethazine 25 Mg Rect Supp) 25 mg AR Q6H PRN PRN Reason: Nausea And Vomiting Sodium Chloride (Sodium Chloride 0.9% 10 Ml Flush Syringe) 10 ml IV BID [facility] Last Admin: 01/25/22 12:18 Dose: 10 ml Sodium Chloride (Sodium Chloride 0.9% 10 Ml Flush Syringe) 10 ml IV PRN PRN PRN Reason: LINE FLUSH Review of Systems All systems: negative (as per hpi;) Physical Examination - Vital Signs Vital Signs: Vital Signs Temp Pulse Resp BP Pulse Ox 98.3 F 97 H 18 159/62 98 01/24/22 18:20 01/24/22 18:20 01/24/22 18:20 01/24/22 18:20 01/24/22 18:20 - Physical Exam Narrative exam: Gen: nad, well-nourished; Head: normocephalic; Eyes: no gaze deviation; no ptosis; ENT: normal vocalization; CVS: warm and well-perfused; Pulm: no respiratory distress; GI: appears non-distended; Ext: no cyanosis appreciated at distal extremities; Skin: no acute rash at distal extremities; Heme: no pathologic ecchymosis appreciated at distal extremities; Neuro: alert, oriented to name, age, month, year, surroundings, no dysarthria, no aphasia, CN 2 - PERRL, visual nuñez grossly intact, CN 3, 4, 6 - EOMI, CN 5 - facial sensation symmetric to light touch, CN 7 - facial movement symmetric, CN 8 - hearing grossly intact on the left only, CN 9, 10 - uvula midline, CN 11 symmetric shoulder movement, CN 12 - tongue midline; Motor - at least 4+/5 at all exts; Sensory - light touch symmetric, Cerebellar - fnf /hts intact, Gait - deferred secondary to fall risk; Results - Laboratory Findings CBC and BMP: 01/24/22 18:36 01/25/22 04:39 Abnormal Lab Findings: Abnormal Labs 01/24/22 01/24/22 01/24/22 18:36 18:36 18:36 Hgb 7.8 L Hct 24.4 L MCV 66 L MCH 21 L RDW 15.5 H Lymph % (Auto) 8.3 L [place] % (Auto) 8.5 H Lymph # (Auto) 0.8 L [place] # (Auto) 0.9 H Seg Neutrophils % 82.1 H Seg Neutrophils # 8.3 H PT 15.1 H APTT 52.4 H Sodium 132 L Chloride 96 L Carbon Dioxide 17 L BUN 45 H Creatinine 3.5 H Glucose 135 H Troponin T 0.037 H Albumin 01/24/22 01/25/22 19:00 04:39 Hgb Hct MCV MCH RDW Lymph % (Auto) [place] % (Auto) Lymph # (Auto) [place] # (Auto) Seg Neutrophils % Seg Neutrophils # PT APTT Sodium 132 L 134 L Chloride 96.0 L 97.5 L Carbon Dioxide 17 L BUN 45 H 43 H Creatinine 3.5 H 3.5 H Glucose 135 H Troponin T Albumin 3.5 L Assessment and Plan 76 yo male with htn, dm, who presents with progressive tinnitus and loss of hearing involving the right ear with onset earlier last week. He notes positional dizziness. 1. Acute Hearing Loss (Right) w/ Tinnitus - mri brain w/ contrast to r/o schwanoma as a possible etiology, and if negative, recommend emergent ent evaluation. 2. Hypertension - aim for normotension. 3. DM - aim for euglycemia. 4. If MR Brain w/ wo contrast is unremarkable, recommend emergent ent evaluation and neurology will signoff. Alonso Schrader MD Neurology [id number]
[2022-01-26] MEDS: HEPARIN 5,000 UNIT/1 ML VIAL SUB-Q SCH ×3 (05:21→21:50)
[2022-01-26 06:24] LABS: Basophils # (Auto) 0.1 K/mm3 (0.0-0.1); Basophils % (Auto) 0.8 % (0.0-1.8); Eosinophils % (Auto) 0.1 % (0.0-4.3); Hematocrit 21.2 % (35.5-45.6); Hemoglobin 6.8 gm/dl (11.8-15.2); Lymphocytes # (Auto) 0.8 K/mm3 (1.2-5.4); Lymphocytes % (Auto) 7.9 % (13.4-35.0); Mean Corpuscular HGB Conc 32 % (32-34); Monocytes # (Auto) 0.6 K/mm3 (0.0-0.8); Monocytes % (Auto) 6.2 % (0.0-7.3); Platelet Count 285 K/mm3 (140-440); Red Blood Count 3.23 M/mm3 (3.65-5.03); Red Cell Distribution Width 15.4 % (13.2-15.2)
[2022-01-26 06:25] LABS: Mean Corpuscular Volume 66 fl (84-94)
[2022-01-26 06:41] LABS: Calcium 9.6 mg/dL (8.4-10.2)
--- NOTE | 2022-01-26 09:26 | Progress Note ---
Assessment and Plan Impression: * Acute kidney injury - unclear etiology; likely prerenal on chronic kidney disease --Renal ultrasound reviewed - prostate enlarged, mild bladder distension, no hydro --SCr 2.01mg/dL (outpatient PCP labs - 10/22/2021) * Microscopic hematuria * Proteinuria * Dizziness * Type II diabetes mellitus * Hypertension * Enlarged prostate Plan: * No acute indication for renal replacement therapy at this time. Continue conservative management * IVF for gentle hydration * Will obtain serologic work up in light of VIRI, hematuria and proteinuria * Neurology recommendations reviewed * Dose medications for renal function * Avoid potential nephrotoxins * AM labs * Patient is not stable for discharge from a renal standpoint Subjective Date of service: 01/26/22 Interval history: Patient has no complaints today Objective - Vital Signs Vital signs: Vital Signs - 12hr 01/25/22 01/25/22 01/25/22 21:38 21:41 23:28 Temperature 99.0 F 99.1 F Pulse Rate 95 H 94 H Respiratory 17 18 Rate Blood Pressure 146/65 135/61 O2 Sat by Pulse 99 100 98 Oximetry 01/25/22 01/26/22 01/26/22 23:41 04:00 05:33 Temperature 99.3 F Pulse Rate 92 H 92 H Respiratory 18 Rate Blood Pressure 130/63 O2 Sat by Pulse 97 97 Oximetry 01/26/22 07:47 Temperature 100.4 F H Pulse Rate 91 H Respiratory 18 Rate Blood Pressure 126/60 O2 Sat by Pulse 99 Oximetry - General Appearance General appearance: well-developed, well-nourished EENT: ATNC Respiratory: Present: Clear to Ascultation Cardiology: regular, S1S2 Gastrointestinal: normal, no tenderness, no distended Integumentary: no rash, warm and dry Neurologic: alert and oriented x3 Psychiatric: cooperative - Lab 01/26/22 05:34 01/26/22 05:34 Most recent lab results Calcium 9.6 mg/dL (8.4-10.2) 01/26/22 05:34 Medications & Allergies - Medications Allergies/Adverse Reactions: Allergies Tetracyclines Allergy (Verified 01/14/15 08:42) Unknown venom-honey bee [bee venom (honey bee)] Allergy (Verified 01/14/15 08:42) Unknown Home Medications: Home Medications Medication Instructions Recorded Confirmed Last Taken Type Famotidine [Pepcid] 20 mg PO BID 5 Days tablet 01/14/15 01/25/22 Unknown Rx Glimepiride [Amaryl] 4 mg PO BID 01/14/15 01/25/22 01/13/15 History Hydralazine HCl [Apresoline TAB] 100 mg PO BID 01/14/15 01/25/22 01/23/22 History Lovastatin [Altoprev] 40 mg PO BID 01/14/15 01/25/22 01/23/22 History amLODIPine [Norvasc] 10 mg PO DAILY 01/14/15 01/25/22 01/23/22 History diphenhydrAMINE [Benadryl CAP] 50 mg PO Q8HR 5 Days capsule 01/14/15 01/25/22 Unknown Rx metFORMIN [Glucophage] 500 mg PO BID 01/14/15 01/25/22 01/13/15 History predniSONE [Deltasone] 20 mg PO QDAY 5 Days tab 01/14/15 01/25/22 Unknown Rx Active Medications: Generic Name Dose Route Start Last Admin Trade Name Freq PRN Reason Stop Dose Admin Acetaminophen 650 mg 01/24/22 22:55 Acetaminophen 325 Mg Tab PO Q4H PRN Pain, Mild (1-3) Aspirin 325 mg 01/25/22 10:00 01/25/22 12:18 Aspirin 325 Mg Tab PO 325 mg QDAY ROBERTO CARLOS Administration Atorvastatin Calcium 40 mg 01/25/22 22:30 01/25/22 22:26 Atorvastatin 20 Mg Tab PO 40 mg QHS ROBERTO CARLOS Administration Bisacodyl 10 mg 01/24/22 22:55 Bisacodyl 10 Mg Rect Supp [place] QDAY PRN Constipation Heparin Sodium (Porcine) 5,000 unit 01/25/22 06:00 01/26/22 05:21 Heparin 5,000 Unit/1 Ml Vial SUB-Q 5,000 unit Q8HR ROBERTO CARLOS Administration Sodium Chloride 1,000 mls @ 75 mls/hr 01/26/22 09:30 Nacl 0.9% 1000 Ml IV DIRECT ROBERTO CARLOS Magnesium Hydroxide 30 ml 01/24/22 22:55 Magnesium Hydroxide (Mom) Oral Liqd Udc PO Q4H PRN Constipation Metoclopramide HCl 5 mg 01/24/22 22:55 Metoclopramide 10 Mg Tab PO Q6H PRN Nausea And Vomiting Morphine Sulfate 2 mg 01/24/22 22:55 Morphine 2 Mg/1 Ml Inj IV Q4H PRN Pain, Moderate (4-6) Morphine Sulfate 4 mg 01/24/22 22:55 Morphine 4 Mg/1 Ml Inj IV Q4H PRN Pain , Severe (7-10) Ondansetron HCl 4 mg 01/24/22 22:55 Ondansetron 4 Mg/2 Ml Inj IV Q8H PRN Nausea And Vomiting Promethazine HCl 25 mg 01/24/22 22:55 Promethazine 25 Mg Rect Supp [place] Q6H PRN Nausea And Vomiting Sodium Chloride 10 ml 01/25/22 10:00 01/25/22 22:25 Sodium Chloride 0.9% 10 Ml Flush Syringe IV 10 ml BID ROBERTO CARLOS Administration Sodium Chloride 10 ml 01/24/22 22:55 Sodium Chloride 0.9% 10 Ml Flush Syringe IV PRN PRN LINE FLUSH
[2022-01-26] MEDS: ASPIRIN 325 MG TAB PO SCH (09:49)
[2022-01-26] MEDS: SODIUM CHLORIDE 0.9% 1000 ML 1,000 ML IV SCH ×2 (09:52→22:00)
--- NOTE | 2022-01-26 13:55 | Electrocardiograph Report ---
[facility] Test Date: 2022-01-24 Test Time: 18:30:05 Pat Name: LILLIE MARRERO Department: Room: A478 Gender: M Oncology Nurse: tatyana : 1945 Requested By: CHAY DUNN Order Number: [id number] Reading MD: Jo Vergara Measurements Intervals [place] Rate: 99 P: 78 NH: 134 QRS: 1 QRSD: 83 T: 51 QT: 350 QTc: 449 Interpretive Statements Sinus rhythm Probable left atrial enlargement Anteroseptal infarct, old Low voltage QRS No previous ECG available for comparison Electronically Signed On 01-26-2022 13:55:45 EDT by Jo Vergara
--- NOTE | 2022-01-26 15:00 | Progress Note ---
Assessment and Plan Assessment and plan: 76-year-old male with known history of hypertension and diet-controlled diabetes mellitus presents to the emergency room today complaining of loss of hearing on the right side of his ear. He has also been having severe dizziness whenever he changed position. Work-up in the emergency room with CT of the head showing chronic and age-related changes otherwise no acute findings. CTA head and neck were unremarkable. Chest x-ray shows no acute findings. Consult was placed to the teleneurologist by the ER physician and recommendation was to have patient worked up for possible CVA. #Dizziness #Hypertension #Noninsulin-dependent diabetes mellitus type 2 #Acute kidney injurycreatinine 3.4 (baseline unknown) #Elevated troponin #Microcytic anemiahemoglobin 6.8 #Polysubstance dependence -Patient engages in the following substances: Marijuana -Counseled patient about the importance of cessation of substance abuse. Offered resources to help with quitting. Patient expresses understanding. -Time: +15 mins #Advanced care planning -Disease education conducted, care plan discussed, diagnoses discussed, prognosis discussed, and patient acknowledges understanding with care plan -Time: +30 min #Discharge planning - Patient is pending resolution of VIRI - Case management has been made aware. - Discharge is tentatively 24-72 hours 01/25/2022. Follow-up carotid Doppler, MRI brain and echocardiogram. Neurology consultation pending. Patient's creatinine is elevated at 3.5 with no baseline creatinine to compare. Renal ultrasound reveals mild increased cortical echoge nicity compatible with chronic medical renal disease, prominent prostate with mild bladder distention. Urinalysis negative. Await nephrology consultation. Elevated troponin likely secondary to renal insufficiency. Patient with no complaints of chest pain. Consider cardiology consultation 01/26/2022. Unremarkable carotid Doppler, MRI brain, and TTE. Neurology recommending ENT follow-up for acute decreased hearing in right ear; however, ENT is not available at this facility. Starting IV fluid resuscitation for VIRI. Patient denies any complaints of chest pain. Pending anemia work-up for hemoglobin of 6.8. Disposition Plan: continue medical management Total Time Spent with Patient (Minutes): 45 minutes History Interval history: No acute events overnight. Hospitalist Physical - Constitutional Vitals: Temp Pulse Resp BP Pulse Ox 98.8 F 86 18 117/58 96 01/26/22 11:14 01/26/22 11:14 01/26/22 14:08 01/26/22 11:14 01/26/22 14:08 General appearance: Present: no acute distress, well-nourished - EENT Eyes: Present: PERRL, EOM intact ENT: clear oral mucosa, dentition normal, hearing decreased (Decreased hearing in the right ear) - Neck Neck: Present: supple, normal ROM - Respiratory Respiratory effort: normal Respiratory: bilateral: CTA - Cardiovascular Rhythm: regular Heart Sounds: Present: S1 & S2 - Extremities Extremities: no ischemia, pulses intact, pulses symmetrical, No edema, normal temperature, normal color Peripheral Pulses: within normal limits - Abdominal General gastrointestinal: soft, non-tender, non-distended, normal bowel sounds - Integumentary Integumentary: Present: clear, warm, dry - Psychiatric Psychiatric: appropriate mood/affect, intact judgment & insight, memory intact, cooperative - Neurologic Neurologic: CNII-XII intact, moves all extremities - Allied Health Allied health notes reviewed: nursing, case management HEART Score - HEART Score Troponin: Troponin T 0.037 ng/mL (0.00-0.029) H 01/24/22 18:36 Results - Labs CBC & Chem 7: 01/26/22 05:34 01/26/22 05:34 Labs: Laboratory Last Values WBC 10.3 K/mm3 (4.5-11.0) 01/26/22 05:34 RBC 3.23 M/mm3 (3.65-5.03) L 01/26/22 05:34 Hgb 6.8 gm/dl (11.8-15.2) L 01/26/22 05:34 Hct 21.2 % (35.5-45.6) L 01/26/22 05:34 MCV 66 fl (84-94) L 01/26/22 05:34 MCH 21 pg (28-32) L 01/26/22 05:34 MCHC 32 % (32-34) 01/26/22 05:34 RDW 15.4 % (13.2-15.2) H 01/26/22 05:34 Plt Count 285 K/mm3 (140-440) 01/26/22 05:34 Lymph % (Auto) 7.9 % (13.4-35.0) L 01/26/22 05:34 [place] % (Auto) 6.2 % (0.0-7.3) 01/26/22 05:34 Eos % (Auto) 0.1 % (0.0-4.3) 01/26/22 05:34 Baso % (Auto) 0.8 % (0.0-1.8) 01/26/22 05:34 Lymph # (Auto) 0.8 K/mm3 (1.2-5.4) L 01/26/22 05:34 [place] # (Auto) 0.6 K/mm3 (0.0-0.8) 01/26/22 05:34 Eos # (Auto) 0.0 K/mm3 (0.0-0.4) 01/26/22 05:34 Baso # (Auto) 0.1 K/mm3 (0.0-0.1) 01/26/22 05:34 Seg Neutrophils % 85.0 % (40.0-70.0) H 01/26/22 05:34 Seg Neutrophils # 8.7 K/mm3 (1.8-7.7) H 01/26/22 05:34 PT 15.1 Sec. (12.2-14.9) H 01/24/22 18:36 INR 1.07 (0.87-1.13) 01/24/22 18:36 APTT 52.4 Sec. (24.2-36.6) H 01/24/22 18:36 Thrombin Time 15.7 Sec. (15.1-19.6) 01/24/22 18:36 Sodium 134 mmol/L (137-145) L 01/26/22 05:34 Potassium 3.9 mmol/L (3.6-5.0) 01/26/22 05:34 Chloride 98.7 mmol/L (98-107) 01/26/22 05:34 Carbon Dioxide 22 mmol/L (22-30) 01/26/22 05:34 Anion Gap 17 mmol/L 01/26/22 05:34 BUN 42 mg/dL (9-20) H 01/26/22 05:34 Creatinine 3.4 mg/dL (0.8-1.3) H 01/26/22 05:34 Estimated GFR 21 ml/min 01/26/22 05:34 BUN/Creatinine Ratio 12 % 01/26/22 05:34 Glucose 71 mg/dL (75-100) L 01/26/22 05:34 POC Glucose 88 mg/dL (70-105) 01/25/22 22:31 Calcium 9.6 mg/dL (8.4-10.2) 01/26/22 05:34 Total Bilirubin 0.50 mg/dL (0.1-1.2) 01/24/22 19:00 AST 35 units/L (5-40) 01/24/22 19:00 ALT 13 units/L (7-56) 01/24/22 19:00 Alkaline Phosphatase 78 units/L (35-129) 01/24/22 19:00 Troponin T 0.037 ng/mL (0.00-0.029) H 01/24/22 18:36 Total Protein 7.4 g/dL (6.3-8.2) 01/24/22 19:00 Albumin 3.5 g/dL (3.9-5) L 01/24/22 19:00 Albumin/Globulin Ratio 0.0 % 01/24/22 19:00 Triglycerides 95 mg/dL (2-149) 01/24/22 18:36 Cholesterol 156 mg/dL (50-199) 01/24/22 18:36 LDL Cholesterol Direct 90 mg/dL (50-130) 01/24/22 18:36 HDL Cholesterol 43 mg/dL (40-59) 01/24/22 18:36 Cholesterol/HDL Ratio 3.62 % 01/24/22 18:36 Urine Color Yellow (Yellow) 01/25/22 08:01 Urine Turbidity Clear (Clear) 01/25/22 08:01 Specific [place] (Man) 1.010 (1.003-1.030) 01/25/22 08:01 Ur Protein (Man) 1+ mg/dL (Negative) 01/25/22 08:01 Ur Ketones (Man) 5mg/dl (Negative) 01/25/22 08:01 Urine Bilirubin (Man) Negative (Negative) 01/25/22 08:01 Urine WBC (Auto) 5.0 /HPF (0.0-6.0) 01/25/22 08:01 Urine RBC (Auto) 53.0 /HPF (0.0-6.0) 01/25/22 08:01 U Epithel Cells (Auto) < 1.0 /HPF (0-13.0) 01/25/22 08:01 Urine RBC (Manual) 2+ (Negative) 01/25/22 08:01 Urine Opiates Screen Negative 01/25/22 08:01 Urine Methadone Screen Negative 01/25/22 08:01 Ur Barbiturates Screen Negative 01/25/22 08:01 Ur Phencyclidine Scrn Negative 01/25/22 08:01 Ur Amphetamines Screen Negative 01/25/22 08:01 U Benzodiazepines Scrn Negative 01/25/22 08:01 Urine Cocaine Screen Negative 01/25/22 08:01 U Marijuana (THC) Screen Positive 01/25/22 08:01 Drugs of Abuse Note Disclamer 01/25/22 08:01 Babin/IV: Voiding Method Urinal Active Medications - Current Medications Current Medications: Generic Name Dose Route Start Last Admin Trade Name Freq PRN Reason Stop Dose Admin Acetaminophen 650 mg 01/24/22 22:55 01/26/22 09:51 Acetaminophen 325 Mg Tab PO 650 mg Q4H PRN Administration Pain, Mild (1-3) Aspirin 325 mg 01/25/22 10:00 01/26/22 09:49 Aspirin 325 Mg Tab PO 325 mg QDAY ROBERTO CARLOS Administration Atorvastatin Calcium 40 mg 01/25/22 22:30 01/25/22 22:26 Atorvastatin 20 Mg Tab PO 40 mg QHS ROBERTO CARLOS Administration Bisacodyl 10 mg 01/24/22 22:55 Bisacodyl 10 Mg Rect Supp [place] QDAY PRN Constipation Heparin Sodium (Porcine) 5,000 unit 01/25/22 06:00 01/26/22 14:13 Heparin 5,000 Unit/1 Ml Vial SUB-Q 5,000 unit Q8HR ROBERTO CARLOS Administration Sodium Chloride 1,000 mls @ 75 mls/hr 01/26/22 09:30 01/26/22 09:52 Nacl 0.9% 1000 Ml IV 75 mls/hr DIRECT ROBERTO CARLOS Administration Magnesium Hydroxide 30 ml 01/24/22 22:55 Magnesium Hydroxide (Mom) Oral Liqd Udc PO Q4H PRN Constipation Metoclopramide HCl 5 mg 01/24/22 22:55 Metoclopramide 10 Mg Tab PO Q6H PRN Nausea And Vomiting Morphine Sulfate 2 mg 01/24/22 22:55 Morphine 2 Mg/1 Ml Inj IV Q4H PRN Pain, Moderate (4-6) Morphine Sulfate 4 mg 01/24/22 22:55 Morphine 4 Mg/1 Ml Inj IV Q4H PRN Pain , Severe (7-10) Ondansetron HCl 4 mg 01/24/22 22:55 Ondansetron 4 Mg/2 Ml Inj IV Q8H PRN Nausea And Vomiting Promethazine HCl 25 mg 01/24/22 22:55 Promethazine 25 Mg Rect Supp [place] Q6H PRN Nausea And Vomiting Sodium Chloride 10 ml 01/25/22 10:00 01/26/22 09:49 Sodium Chloride 0.9% 10 Ml Flush Syringe IV 10 ml BID ROBERTO CARLOS Administration Sodium Chloride 10 ml 01/24/22 22:55 Sodium Chloride 0.9% 10 Ml Flush Syringe IV PRN PRN LINE FLUSH Nutrition/Malnutrition Assess - Dietary Evaluation Nutrition/Malnutrition Findings: Nutrition Notes Start: 01/25/22 12:4 2 Freq: Status: Active Protocol: Document 01/25/22 12:42 MELIA (Rec: 01/25/22 12:55 MELIA [id number]) Nutrition Notes Need for Assessment generated from: MD Order,Education Initial or Follow up Brief Note Current Diagnosis Acute Kidney Injury,Diabetes, Hypertension Other Pertinent Diagnosis r/o CVA. Current Diet Cardiac/Consistent Carbohydrates Diet (since B ). Height 5 ft 10 in Weight 68.039 kg [place] Body Weight (kg) 75.45 BMI 21.5 Weight change and time frame None provided at admission. Weight Status Appropriate Subjective/Other Information RD consult for nutrition education assessment. No reports available on Pt's PO intake of meals at the time , will assess at F/U. Pt is on Room Air, O2 saturation @ 100%, according to Physical Assessment History notes. Bedside swallow assessment passed on 01/25, according to Swallow Screen notes. Pt still in critical condition , not a candidate for Nutrition Education at the time, will assess feasibility on F/U. Percent of energy/protein needs met: Prescribed Cardiac/Consistent Carbohydrates Diet provides for energy/protein needs (1, 977 Kcal/86 g) during LOS. Nutrition Intervention Follow-Up By: 02/01/22 Additional Comments Nutrition education will be provided at F/U, if feasible. Continue monitoring food tolerance, %PO intake of meals , and BM.
[2022-01-26 18:03] LABS: Creatinine,Urine 114.6 mg/dL (0.1-20.0); Protein/Creatinine Ratio,Urine 0.59
[2022-01-27 05:51] LABS: Basophils # (Auto) 0.1 K/mm3 (0.0-0.1); Basophils % (Auto) 0.8 % (0.0-1.8); Eosinophils # (Auto) 0.1 K/mm3 (0.0-0.4); Eosinophils % (Auto) 0.6 % (0.0-4.3); Hematocrit 20.3 % (35.5-45.6); Hemoglobin 6.7 gm/dl (11.8-15.2); Lymphocytes # (Auto) 0.9 K/mm3 (1.2-5.4); Lymphocytes % (Auto) 10.2 % (13.4-35.0); Mean Corpuscular HGB Conc 33 % (32-34); Monocytes # (Auto) 0.6 K/mm3 (0.0-0.8); Monocytes % (Auto) 6.7 % (0.0-7.3); Platelet Count 267 K/mm3 (140-440); Red Blood Count 3.16 M/mm3 (3.65-5.03); Red Cell Distribution Width 15.6 % (13.2-15.2)
[2022-01-27 05:52] LABS: Mean Corpuscular Volume 64 fl (84-94)
[2022-01-27] MEDS: HEPARIN 5,000 UNIT/1 ML VIAL SUB-Q SCH ×3 (06:22→21:07)
[2022-01-27 06:26] LABS: Calcium 9.4 mg/dL (8.4-10.2)
[2022-01-27] MEDS ORDERED: SODIUM CHLORIDE 0.9% 500 ML 500 ML IV SCH (08:30)
[2022-01-27] MEDS: ASPIRIN 325 MG TAB PO SCH (09:43)
--- NOTE | 2022-01-27 09:50 | Progress Note ---
Assessment and Plan Impression: * Acute kidney injury - unclear etiology; likely prerenal on chronic kidney disease --Renal ultrasound reviewed - prostate enlarged, mild bladder distension, no hydro --SCr 2.01mg/dL (outpatient PCP labs - 10/22/2021) * Microscopic hematuria * Proteinuria --UPCR 590mg * Dizziness * Type II diabetes mellitus * Hypertension * Enlarged prostate Plan: * Renal function improving. No acute indication for renal replacement therapy at this time. Continue conservative management * Continue IVF for gentle hydration * Await pending serologic work up in light of VIRI, hematuria and proteinuria * Neurology recommendations reviewed * Dose medications for renal function * Avoid potential nephrotoxins * AM labs * Patient is not stable for discharge from a renal standpoint Subjective Date of service: 01/27/22 Interval history: No acute events overnight Objective - Vital Signs Vital signs: Vital Signs - 12hr 01/26/22 01/26/22 01/26/22 22:00 23:00 23:09 Temperature 98.1 F Pulse Rate 86 87 Respiratory 16 Rate Blood Pressure 142/64 O2 Sat by Pulse 98 97 Oximetry 01/27/22 01/27/22 01/27/22 02:00 03:27 08:06 Temperature 98.9 F 97.8 F Pulse Rate 89 86 Respiratory 18 18 18 Rate Blood Pressure 132/66 145/67 O2 Sat by Pulse 96 99 98 Oximetry 01/27/22 09:44 Temperature Pulse Rate Respiratory Rate Blood Pressure O2 Sat by Pulse 100 Oximetry - General Appearance General appearance: well-developed, well-nourished EENT: ATNC Respiratory: Present: Clear to Ascultation Cardiology: regular, S1S2 Gastrointestinal: normal, no tenderness, no distended Psychiatric: cooperative - Lab 01/27/22 05:14 01/27/22 05:14 Most recent lab results Calcium 9.4 mg/dL (8.4-10.2) 01/27/22 05:14 Urine Creatinine 114.6 mg/dL (0.1-20.0) H 01/26/22 Unknown Urine Total Protein 68 mg/dL (5-11.8) H 01/26/22 Unknown Medications & Allergies - Medications Allergies/Adverse Reactions: Allergies Tetracyclines Allergy (Verified 01/14/15 08:42) Unknown venom-honey bee [bee venom (honey bee)] Allergy (Verified 01/14/15 08:42) Unknown Home Medications: Home Medications Medication Instructions Recorded Confirmed Last Taken Type Famotidine [Pepcid] 20 mg PO BID 5 Days tablet 01/14/15 01/25/22 Unknown Rx Glimepiride [Amaryl] 4 mg PO BID 01/14/15 01/25/22 01/13/15 History Hydralazine HCl [Apresoline TAB] 100 mg PO BID 01/14/15 01/25/22 01/23/22 History Lovastatin [Altoprev] 40 mg PO BID 01/14/15 01/25/22 01/23/22 History amLODIPine [Norvasc] 10 mg PO DAILY 01/14/15 01/25/22 01/23/22 History diphenhydrAMINE [Benadryl CAP] 50 mg PO Q8HR 5 Days capsule 01/14/15 01/25/22 Unknown Rx metFORMIN [Glucophage] 500 mg PO BID 01/14/15 01/25/22 01/13/15 History predniSONE [Deltasone] 20 mg PO QDAY 5 Days tab 01/14/15 01/25/22 Unknown Rx Active Medications: Generic Name Dose Route Start Last Admin Trade Name Freq PRN Reason Stop Dose Admin Acetaminophen 650 mg 01/24/22 22:55 01/26/22 09:51 Acetaminophen 325 Mg Tab PO 650 mg Q4H PRN Administration Pain, Mild (1-3) Aspirin 325 mg 01/25/22 10:00 01/27/22 09:43 Aspirin 325 Mg Tab PO 325 mg QDAY ROBERTO CARLOS Administration Atorvastatin Calcium 40 mg 01/25/22 22:30 01/26/22 21:50 Atorvastatin 20 Mg Tab PO 40 mg QHS ROBERTO CARLOS Administration Bisacodyl 10 mg 01/24/22 22:55 Bisacodyl 10 Mg Rect Supp [place] QDAY PRN Constipation Heparin Sodium (Porcine) 5,000 unit 01/25/22 06:00 01/27/22 06:22 Heparin 5,000 Unit/1 Ml Vial SUB-Q 5,000 unit Q8HR ROBERTO CARLOS Administration Sodium Chloride 1,000 mls @ 75 mls/hr 01/26/22 09:30 01/26/22 22:00 Nacl 0.9% 1000 Ml IV 75 mls/hr DIRECT ROBERTO CARLOS Administration Sodium Chloride 500 mls @ 0 mls/hr 01/27/22 08:30 01/27/22 09:44 Nacl 0.9% 500 Ml IV 01/27/22 19:00 150 mls/hr ONCE@0830 ROBERTO CARLOS Administration As Directed Magnesium Hydroxide 30 ml 01/24/22 22:55 Magnesium Hydroxide (Mom) Oral Liqd Udc PO Q4H PRN Constipation Metoclopramide HCl 5 mg 01/24/22 22:55 Metoclopramide 10 Mg Tab PO Q6H PRN Nausea And Vomiting Morphine Sulfate 2 mg 01/24/22 22:55 Morphine 2 Mg/1 Ml Inj IV Q4H PRN Pain, Moderate (4-6) Morphine Sulfate 4 mg 01/24/22 22:55 Morphine 4 Mg/1 Ml Inj IV Q4H PRN Pain , Severe (7-10) Ondansetron HCl 4 mg 01/24/22 22:55 Ondansetron 4 Mg/2 Ml Inj IV Q8H PRN Nausea And Vomiting Promethazine HCl 25 mg 01/24/22 22:55 Promethazine 25 Mg Rect Supp [place] Q6H PRN Nausea And Vomiting Sodium Chloride 10 ml 01/25/22 10:00 01/27/22 09:44 Sodium Chloride 0.9% 10 Ml Flush Syringe IV 10 ml BID ROBERTO CARLOS Administration Sodium Chloride 10 ml 01/24/22 22:55 Sodium Chloride 0.9% 10 Ml Flush Syringe IV PRN PRN LINE FLUSH
[2022-01-27] MEDS: SODIUM CHLORIDE 0.9% 1000 ML 1,000 ML IV SCH (13:07)
--- NOTE | 2022-01-27 17:02 | Progress Note ---
Assessment and Plan Assessment and plan: 76-year-old male with known history of hypertension and diet-controlled diabetes mellitus presents to the emergency room today complaining of loss of hearing on the right side of his ear. He has also been having severe dizziness whenever he changed position. Work-up in the emergency room with CT of the head showing chronic and age-related changes otherwise no acute findings. CTA head and neck were unremarkable. Chest x-ray shows no acute findings. Consult was placed to the teleneurologist by the ER physician and recommendation was to have patient worked up for possible CVA. #Dizziness #Hypertension #Noninsulin-dependent diabetes mellitus type 2 #VIRI on CKD stage IIIimproving creatinine 3.1 (baseline creatinine 2.01 as of 10/2021) Continue IV fluid resuscitation. Renally dose medications and avoid for toxic drugs Continue to monitor. #Elevated troponin #Iron deficiency anemia anemiahemoglobin 6.8 Transfusing 1 unit packed RBC Transfuse if hemoglobin <7 or patient comes symptomatic. #Polysubstance dependence -Patient engages in the following substances: Marijuana -Counseled patient about the importance of cessation of substance abuse. Offered resources to help with quitting. Patient expresses understanding. -Time: +15 mins #Advanced care planning -Disease education conducted, care plan discussed, diagnoses discussed, prognosis discussed, and patient acknowledges understanding with care plan -Time: +30 min #Discharge planning - Patient is pending resolution of VIRI - Case management has been made aware. - Discharge is tentatively 24-72 hours 01/25/2022. Follow-up carotid Doppler, MRI brain and echocardiogram. Neurology consultation pending. Patient's creatinine is elevated at 3.5 with no baseline creatinine to compare. Renal ultrasound reveals mild increased cortical echogenicity compatible with chronic medical renal disease, prominent prostate with mild bladder distention. Urinalysis negative. Await nephrology consultati on. Elevated troponin likely secondary to renal insufficiency. Patient with no complaints of chest pain. Consider cardiology consultation 01/26/2022. Unremarkable carotid Doppler, MRI brain, and TTE. Neurology recommending ENT follow-up for acute decreased hearing in right ear; however, ENT is not available at this facility. Starting IV fluid resuscitation for VIRI. Patient denies any complaints of chest pain. Pending anemia work-up for hemoglobin of 6.8. 01/27/2022. Improvement and an VIRI on CKD stage III (baseline creatinine 2.01). Continue IV fluid resuscitation. Scheduling Reglan every 6 hours for unexplained nausea. Also starting oral PPI 40 mg daily. Transfusing 1 unit packed RBCs for hemoglobin of 6.7. Continue to monitor. Disposition Plan: Continue medical management Total Time Spent with Patient (Minutes): 45 min History Interval history: No acute events overnight. Hospitalist Physical - Constitutional Vitals: Temp Pulse Resp BP Pulse Ox 98.6 F 86 18 130/72 99 01/27/22 15:22 01/27/22 15:22 01/27/22 15:22 01/27/22 15:22 01/27/22 15:22 General appearance: Present: no acute distress, well-nourished - EENT Eyes: Present: PERRL, EOM intact ENT: hearing intact, clear oral mucosa, dentition normal - Neck Neck: Present: supple, normal ROM - Respiratory Respiratory effort: normal Respiratory: bilateral: CTA - Cardiovascular Rhythm: regular Heart Sounds: Present: S1 & S2 - Extremities Extremities: no ischemia, pulses intact, pulses symmetrical, No edema, normal temperature, normal color, Full ROM Peripheral Pulses: within normal limits - Abdominal General gastrointestinal: soft, non-tender, non-distended, normal bowel sounds - Integumentary Integumentary: Present: clear, warm, dry - Psychiatric Psychiatric: appropriate mood/affect, intact judgment & insight, memory intact, cooperative - Neurologic Neurologic: CNII-XII intact, moves all extremities - Allied Health Allied health notes reviewed: nursing, case management HEART Score - HEART Score Troponin: Troponin T 0.037 ng/mL (0.00-0.029) H 01/24/22 18:36 Results - Labs CBC & Chem 7: 01/27/22 05:14 01/27/22 05:14 Labs: Laboratory Last Values WBC 8.7 K/mm3 (4.5-11.0) 01/27/22 05:14 RBC 3.16 M/mm3 (3.65-5.03) L 01/27/22 05:14 Hgb 6.7 gm/dl (11.8-15.2) L 01/27/22 05:14 Hct 20.3 % (35.5-45.6) L 01/27/22 05:14 MCV 64 fl (84-94) L 01/27/22 05:14 MCH 21 pg (28-32) L 01/27/22 05:14 MCHC 33 % (32-34) 01/27/22 05:14 RDW 15.6 % (13.2-15.2) H 01/27/22 05:14 Plt Count 267 K/mm3 (140-440) 01/27/22 05:14 Lymph % (Auto) 10.2 % (13.4-35.0) L 01/27/22 05:14 [place] % (Auto) 6.7 % (0.0-7.3) 01/27/22 05:14 Eos % (Auto) 0.6 % (0.0-4.3) 01/27/22 05:14 Baso % (Auto) 0.8 % (0.0-1.8) 01/27/22 05:14 Lymph # (Auto) 0.9 K/mm3 (1.2-5.4) L 01/27/22 05:14 [place] # (Auto) 0.6 K/mm3 (0.0-0.8) 01/27/22 05:14 Eos # (Auto) 0.1 K/mm3 (0.0-0.4) 01/27/22 05:14 Baso # (Auto) 0.1 K/mm3 (0.0-0.1) 01/27/22 05:14 Seg Neutrophils % 81.7 % (40.0-70.0) H 01/27/22 05:14 Seg Neutrophils # 7.1 K/mm3 (1.8-7.7) 01/27/22 05:14 PT 15.1 Sec. (12.2-14.9) H 01/24/22 18:36 INR 1.07 (0.87-1.13) 01/24/22 18:36 APTT 52.4 Sec. (24.2-36.6) H 01/24/22 18:36 Thrombin Time 15.7 Sec. (15.1-19.6) 01/24/22 18:36 Sodium 135 mmol/L (137-145) L 01/27/22 05:14 Potassium 3.8 mmol/L (3.6-5.0) 01/27/22 05:14 Chloride 102.4 mmol/L (98-107) 01/27/22 05:14 Carbon Dioxide 21 mmol/L (22-30) L 01/27/22 05:14 Anion Gap 15 mmol/L 01/27/22 05:14 BUN 37 mg/dL (9-20) H 01/27/22 05:14 Creatinine 3.1 mg/dL (0.8-1.3) H 01/27/22 05:14 Estimated GFR 24 ml/min 01/27/22 05:14 BUN/Creatinine Ratio 12 % 01/27/22 05:14 Glucose 77 mg/dL (75-100) 01/27/22 05:14 POC Glucose 91 mg/dL (70-105) 01/27/22 15:23 Calcium 9.4 mg/dL (8.4-10.2) 01/27/22 05:14 Iron 15 ug/dL (49-181) L 01/27/22 05:14 TIBC 102 mcg/dL (250-450) L 01/27/22 05:14 Ferritin 275.0 ng/mL (30.0-300.0) 01/27/22 05:14 Total Bilirubin 0.50 mg/dL (0.1-1.2) 01/24/22 19:00 AST 35 units/L (5-40) 01/24/22 19:00 ALT 13 units/L (7-56) 01/24/22 19:00 Alkaline Phosphatase 78 units/L (35-129) 01/24/22 19:00 Troponin T 0.037 ng/mL (0.00-0.029) H 01/24/22 18:36 Total Protein 7.4 g/dL (6.3-8.2) 01/24/22 19:00 Albumin 3.5 g/dL (3.9-5) L 01/24/22 19:00 Albumin/Globulin Ratio 0.0 % 01/24/22 19:00 Triglycerides 95 mg/dL (2-149) 01/24/22 18:36 Cholesterol 156 mg/dL (50-199) 01/24/22 18:36 LDL Cholesterol Direct 90 mg/dL (50-130) 01/24/22 18:36 HDL Cholesterol 43 mg/dL (40-59) 01/24/22 18:36 Cholesterol/HDL Ratio 3.62 % 01/24/22 18:36 Urine Color Yellow (Yellow) 01/25/22 08:01 Urine Turbidity Clear (Clear) 01/25/22 08:01 Specific [place] (Man) 1.010 (1.003-1.030) 01/25/22 08:01 Ur Protein (Man) 1+ mg/dL (Negative) 01/25/22 08:01 Ur Ketones (Man) 5mg/dl (Negative) 01/25/22 08:01 Urine Bilirubin (Man) Negative (Negative) 01/25/22 08:01 Urine WBC (Auto) 5.0 /HPF (0.0-6.0) 01/25/22 08:01 Urine RBC (Auto) 53.0 /HPF (0.0-6.0) 01/25/22 08:01 U Epithel Cells (Auto) < 1.0 /HPF (0-13.0) 01/25/22 08:01 Urine RBC (Manual) 2+ (Negative) 01/25/22 08:01 Urine Creatinine 114.6 mg/dL (0.1-20.0) H 01/26/22 Unknown Protein/Creatinin Ratio 0.59 01/26/22 Unknown Urine Total Protein 68 mg/dL (5-11.8) H 01/26/22 Unknown Urine Opiates Screen Negative 01/25/22 08:01 Urine Methadone Screen Negative 01/25/22 08:01 Ur Barbiturates Screen Negative 01/25/22 08:01 Ur Phencyclidine Scrn Negative 01/25/22 08:01 Ur Amphetamines Screen Negative 01/25/22 08:01 U Benzodiazepines Scrn Negative 01/25/22 08:01 Urine Cocaine Screen Negative 01/25/22 08:01 U Marijuana (THC) Screen Positive 01/25/22 08:01 Drugs of Abuse Note Disclamer 01/25/22 08:01 Blood Type O POSITIVE 01/27/22 16:20 Crossmatch See Detail 01/27/22 16:20 Babin/IV: Voiding Method Urinal Active Medications - Current Medications Current Medications: Generic Name Dose Route Start Last Admin Trade Name Freq PRN Reason Stop Dose Admin Acetaminophen 650 mg 01/24/22 22:55 01/26/22 09:51 Acetaminophen 325 Mg Tab PO 650 mg Q4H PRN Administration Pain, Mild (1-3) Aspirin 325 mg 01/25/22 10:00 01/27/22 09:43 Aspirin 325 Mg Tab PO 325 mg QDAY ROBERTO CARLOS Administration Atorvastatin Calcium 40 mg 01/25/22 22:30 01/26/22 21:50 Atorvastatin 20 Mg Tab PO 40 mg QHS ROBERTO CARLOS Administration Bisacodyl 10 mg 01/24/22 22:55 Bisacodyl 10 Mg Rect Supp [place] QDAY PRN Constipation Heparin Sodium (Porcine) 5,000 unit 01/25/22 06:00 01/27/22 13:07 Heparin 5,000 Unit/1 Ml Vial SUB-Q 5,000 unit Q8HR ROBERTO CARLOS Administration Sodium Chloride 1,000 mls @ 75 mls/hr 01/26/22 09:30 01/27/22 13:07 Nacl 0.9% 1000 Ml IV 75 mls/hr DIRECT ROBERTO CARLOS Administration Sodium Chloride 500 mls @ 0 mls/hr 01/27/22 08:30 01/27/22 09:44 Nacl 0.9% 500 Ml IV 01/27/22 19:00 150 mls/hr ONCE@0830 ROBERTO CARLOS Administration As Directed Magnesium Hydroxide 30 ml 01/24/22 22:55 Magnesium Hydroxide (Mom) Oral Liqd Udc PO Q4H PRN Constipation Metoclopramide HCl 5 mg 01/24/22 22:55 Metoclopramide 10 Mg Tab PO Q6H PRN Nausea And Vomiting Morphine Sulfate 2 mg 01/24/22 22:55 Morphine 2 Mg/1 Ml Inj IV Q4H PRN Pain, Moderate (4-6) Morphine Sulfate 4 mg 01/24/22 22:55 Morphine 4 Mg/1 Ml Inj IV Q4H PRN Pain , Severe (7-10) Ondansetron HCl 4 mg 01/24/22 22:55 Ondansetron 4 Mg/2 Ml Inj IV Q8H PRN Nausea And Vomiting Promethazine HCl 25 mg 01/24/22 22:55 Promethazine 25 Mg Rect Supp [place] Q6H PRN Nausea And Vomiting Sodium Chloride 10 ml 01/25/22 10:00 01/27/22 09:44 Sodium Chloride 0.9% 10 Ml Flush Syringe IV 10 ml BID ROBERTO CARLOS Administration Sodium Chloride 10 ml 01/24/22 22:55 Sodium Chloride 0.9% 10 Ml Flush Syringe IV PRN PRN LINE FLUSH Nutrition/Malnutrition Assess - Dietary Evaluation Nutrition/Malnutrition Findings: Nutrition Notes Start: 01/25/22 12:42 Freq: Status: Active Protocol: Document 01/25/22 12:42 MELIA (Rec: 01/25/22 12:55 MELIA [id number]) Nutrition Notes Need for Assessment generated from: MD Order,Education Initial or Follow up Brief Note Current Diagnosis Acute Kidney Injury,Diabetes, Hypertension Other Pertinent Diagnosis r/o CVA. Current Diet Cardiac/Consistent Carbohydrates Diet (since B ). Height 5 ft 10 in Weight 68.039 kg [place] Body Weight (kg) 75.45 BMI 21.5 Weight change and time frame None provided at admission. Weight Status Appropriate Subjective/Other Information RD consult for nutrition education assessment. No reports available on Pt's PO intake of meals at the time , will assess at F/U. Pt is on Room Air, O2 saturation @ 100%, according to Physical Assessment History notes. Bedside swallow assessment passed on 01/25, according to Swallow Screen notes. Pt still in critical condition , not a candidate for Nutrition Education at the time, will assess feasibility on F/U. Percent of energy/protein needs met: Prescribed Cardiac/Consistent Carbohydrates Diet provides for energy/protein needs (1, 977 Kcal/86 g) during LOS. Nutrition Intervention Follow-Up By: 02/01/22 Additional Comments Nutrition education will be provided at F/U, if feasible. Continue monitoring food tolerance, %PO intake of meals , and BM.
[2022-01-27] MEDS: PANTOPRAZOLE 40 MG TAB PO SCH (18:07)
[2022-01-27] MEDS: PROMETHAZINE 12.5 MG/10 ML ORAL LIQD PO SCH (19:05)
[2022-01-28] MEDS: PROMETHAZINE 12.5 MG/10 ML ORAL LIQD PO SCH ×5 (03:47→23:40)
[2022-01-28] MEDS: SODIUM CHLORIDE 0.9% 1000 ML 1,000 ML IV SCH (03:47)
[2022-01-28] MEDS: HEPARIN 5,000 UNIT/1 ML VIAL SUB-Q SCH ×3 (05:37→21:16)
[2022-01-28 06:26] LABS: Hematocrit 25.6 % (35.5-45.6); Hemoglobin 8.3 gm/dl (11.8-15.2)
[2022-01-28 06:49] LABS: Calcium 9.2 mg/dL (8.4-10.2)
[2022-01-28] MEDS ORDERED: POTASSIUM CHLORIDE ER 20 MEQ TAB PO NR (08:08)
[2022-01-28] MEDS: ASPIRIN 325 MG TAB PO SCH (09:36)
[2022-01-28] MEDS: PANTOPRAZOLE 40 MG TAB PO SCH (09:36)
--- NOTE | 2022-01-28 09:50 | Progress Note ---
Assessment and Plan Impression: * Acute kidney injury - unclear etiology; likely prerenal on chronic kidney disease --Renal ultrasound reviewed - prostate enlarged, mild bladder distension, no hydro --SCr 2.01mg/dL (outpatient PCP labs - 10/22/2021) * Microscopic hematuria * Proteinuria --UPCR 590mg * Dizziness * Type II diabetes mellitus * Hypertension * Enlarged prostate Plan: * Renal function continues to improve with conservative management. No acute indication for renal replacement therapy at this time. * Continue IVF for gentle hydration * Await pending serologic work up in light of VIRI, hematuria and proteinuria * Neurology recommendations reviewed * Dose medications for renal function * Avoid potential nephrotoxins * AM labs * Patient is not stable for discharge from a renal standpoint - hope to be stable for d/c from a renal standpoint tomorrow Subjective Date of service: 01/28/22 Interval history: Patient reports poor appetite Objective - Vital Signs Vital signs: Vital Signs - 12hr 01/27/22 01/28/22 22:55 03:20 Temperature 99.8 F H 99.8 F H Pulse Rate 91 H 83 Respiratory 12 14 Rate Blood Pressure 142/73 153/73 O2 Sat by Pulse 97 98 Oximetry - General Appearance General appearance: well-developed, well-nourished EENT: ATNC Respiratory: Present: Clear to Ascultation Cardiology: regular, S1S2 - Lab 01/29/22 05:18 01/29/22 05:18 Most recent lab results Calcium 9.2 mg/dL (8.4-10.2) 01/28/22 05:58 Urine Creatinine 114.6 mg/dL (0.1-20.0) H 01/26/22 Unknown Urine Total Protein 68 mg/dL (5-11.8) H 01/26/22 Unknown Medications & Allergies - Medications Allergies/Adverse Reactions: Allergies Tetracyclines Allergy (Verified 01/14/15 08:42) Unknown venom-honey bee [bee venom (honey bee)] Allergy (Verified 01/14/15 08:42) Unknown Home Medications: Home Medications Medication Instructions Recorded Confirmed Last Taken Type Glimepiride [Amaryl] 4 mg PO BID 01/14/15 01/25/22 01/13/15 History amLODIPine 10 mg PO DAILY 01/14/15 01/25/22 01/23/22 History diphenhydrAMINE [Benadryl CAP] 50 mg PO Q8HR 5 Days capsule 01/14/15 01/25/22 Unknown Rx metFORMIN [Glucophage] 500 mg PO BID 01/14/15 01/25/22 01/13/15 History AtorvaSTATin [Lipitor] 40 mg PO QHS #30 tablet 01/29/22 Unknown Rx Pantoprazole [Protonix TAB] 40 mg PO QDAC #30 tablet 01/29/22 Unknown Rx Promethazine [Phenergan] 12.5 mg PO Q8HR PRN #30 tab 01/29/22 Unknown Rx Active Medications: Generic Name Dose Route Start Last Admin Trade Name Freq PRN Reason Stop Dose Admin Acetaminophen 650 mg 01/24/22 22:55 01/26/22 09:51 Acetaminophen 325 Mg Tab PO 650 mg Q4H PRN Administration Pain, Mild (1-3) Aspirin 325 mg 01/25/22 10:00 01/28/22 09:36 Aspirin 325 Mg Tab PO 325 mg QDAY ROBERTO CARLOS Administration Atorvastatin Calcium 40 mg 01/25/22 22:30 01/27/22 21:06 Atorvastatin 20 Mg Tab PO 40 mg QHS ROBERTO CARLOS Administration Bisacodyl 10 mg 01/24/22 22:55 Bisacodyl 10 Mg Rect Supp [place] QDAY PRN Constipation Heparin Sodium (Porcine) 5,000 unit 01/25/22 06:00 01/28/22 05:37 Heparin 5,000 Unit/1 Ml Vial SUB-Q 5,000 unit Q8HR ROBERTO CARLOS Administration Sodium Chloride 1,000 mls @ 75 mls/hr 01/26/22 09:30 01/28/22 03:47 Nacl 0.9% 1000 Ml IV 75 mls/hr DIRECT ROBERTO CARLOS Administration Magnesium Hydroxide 30 ml 01/24/22 22:55 Magnesium Hydroxide (Mom) Oral Liqd Udc PO Q4H PRN Constipation Morphine Sulfate 2 mg 01/24/22 22:55 Morphine 2 Mg/1 Ml Inj IV Q4H PRN Pain, Moderate (4-6) Morphine Sulfate 4 mg 01/24/22 22:55 Morphine 4 Mg/1 Ml Inj IV Q4H PRN Pain , Severe (7-10) Ondansetron HCl 4 mg 01/24/22 22:55 Ondansetron 4 Mg/2 Ml Inj IV Q8H PRN Nausea And Vomiting Pantoprazole Sodium 40 mg 01/27/22 18:00 01/28/22 09:36 Pantoprazole 40 Mg Tab PO 40 mg QDAC ROBERTO CARLOS Administration Potassium Chloride 40 meq 01/28/22 08:08 01/28/22 09:36 Potassium Chloride Er 20 Meq Tab PO 01/28/22 15:00 40 meq ONCE NR Administration Promethazine HCl 12.5 mg 01/27/22 17:00 01/28/22 05:41 Promethazine 12.5 Mg/10 Ml Oral Liqd PO 12.5 mg Q6H ROBERTO CARLOS Administration Sodium Chloride 10 ml 01/25/22 10:00 01/28/22 09:36 Sodium Chloride 0.9% 10 Ml Flush Syringe IV 10 ml BID ROBERTO CARLOS Administration Sodium Chloride 10 ml 01/24/22 22:55 Sodium Chloride 0.9% 10 Ml Flush Syringe IV PRN PRN LINE FLUSH
--- NOTE | 2022-01-28 11:14 | Progress Note ---
Assessment and Plan Assessment and plan: 76-year-old male with known history of hypertension and diet-controlled diabetes mellitus presents to the emergency room today complaining of loss of hearing on the right side of his ear. He has also been having severe dizziness whenever he changed position. Work-up in the emergency room with CT of the head showing chronic and age-related changes otherwise no acute findings. CTA head and neck were unremarkable. Chest x-ray shows no acute findings. Consult was placed to the teleneurologist by the ER physician and recommendation was to have patient worked up for possible CVA. #Dizziness #Hypertension #Noninsulin-dependent diabetes mellitus type 2 #VIRI on CKD stage IIIimproving creatinine 3.1-->2.8 (baseline creatinine 2.01 as of 10/2021) Continue IV fluid resuscitation. Renally dose medications and avoid for toxic drugs Continue to monitor. #Elevated troponin #Iron deficiency anemia anemiahemoglobin 6.8 Transfusing 1 unit packed RBC Transfuse if hemoglobin <7 or patient comes symptomatic. #Polysubstance dependence -Patient engages in the following substances: Marijuana -Counseled patient about the importance of cessation of substance abuse. Offered resources to help with quitting. Patient expresses understanding. -Time: +15 mins #Advanced care planning -Disease education conducted, care plan discussed, diagnoses discussed, prognosis discussed, and patient acknowledges understanding with care plan -Time: +30 min #Discharge planning - Patient is pending resolution of VIRI - Case management has been made aware. 01/25/2022. Follow-up carotid Doppler, MRI brain and echocardiogram. Neurology consultation pending. Patient's creatinine is elevated at 3.5 with no baseline creatinine to compare. Renal ultrasound reveals mild increased cortical echogenicity compatible with chronic medical renal disease, prominent prostate with mild bladder distention. Urinalysis negative. Await nephrology consultation. Elevated troponin likely secondary to renal insufficiency. Patient with no complaints of chest pain. Consider cardiology consultation 01/26/2022. Unremarkable carotid Doppler, MRI brain, and TTE. Neurology recommending ENT follow-up for acute decreased hearing in right ear; however, ENT is not available at this facility. Starting IV fluid resuscitation for VIRI. Patient denies any complaints of chest pain. Pending anemia work-up for hemoglobin of 6.8. 01/27/2022. Improvement in VIRI on CKD stage III (baseline creatinine 2.01). Continue IV fluid resuscitation. Scheduling Reglan every 6 hours for unexplained nausea. Also starting oral PPI 40 mg daily. Transfusing 1 unit packed RBCs for hemoglobin of 6.7. Continue to monitor. 01/28/2022. VIRI continuing to improve. Encouraging increase p.o. intake and continuing IV fluid resuscitation. Gastroenterology consult if patient still remains unable to tolerate p.o. intake. Disposition Plan: Continue medical management Total Time Spent with Patient (Minutes): 45 min History Interval history: No acute events overnight. Hospitalist Physical - Constitutional Vitals: Temp Pulse Resp BP Pulse Ox 99.8 F H 83 14 153/73 98 01/28/22 03:20 01/28/22 03:20 01/28/22 03:20 01/28/22 03:20 01/28/22 03:20 General appearance: Present: no acute distress, well-nourished - EENT Eyes: Present: PERRL, EOM intact ENT: hearing intact, clear oral mucosa, dentition normal - Neck Neck: Present: supple, normal ROM - Respiratory Respiratory effort: normal Respiratory: bilateral: CTA - Cardiovascular Rhythm: regular Heart Sounds: Present: S1 & S2 - Extremities Extremities: no ischemia, pulses intact, pulses symmetrical, No edema, normal temperature, normal color, Full ROM Peripheral Pulses: within normal limits - Abdominal General gastrointestinal: soft, non-tender, non-distended, normal bowel sounds - Integumentary Integumentary: Present: clear, warm, dry - Psychiatric Psychiatric: appropriate mood/affect, intact judgment & insight, memory intact, cooperative - Neurologic Neurologic: CNII-XII intact, moves all extremities - Allied Health Allied health notes reviewed: nursing HEART Score - HEART Score Troponin: Troponin T 0.037 ng/mL (0.00-0.029) H 01/24/22 18:36 Results - Labs CBC & Chem 7: 01/28/22 05:58 01/28/22 05:58 Labs: Laboratory Last Values WBC 8.7 K/mm3 (4.5-11.0) 01/27/22 05:14 RBC 3.16 M/mm3 (3.65-5.03) L 01/27/22 05:14 Hgb 8.3 gm/dl (11.8-15.2) L 01/28/22 05:58 Hct 25.6 % (35.5-45.6) L 01/28/22 05:58 MCV 64 fl (84-94) L 01/27/22 05:14 MCH 21 pg (28-32) L 01/27/22 05:14 MCHC 33 % (32-34) 01/27/22 05:14 RDW 15.6 % (13.2-15.2) H 01/27/22 05:14 Plt Count 267 K/mm3 (140-440) 01/27/22 05:14 Lymph % (Auto) 10.2 % (13.4-35.0) L 01/27/22 05:14 [place] % (Auto) 6.7 % (0.0-7.3) 01/27/22 05:14 Eos % (Auto) 0.6 % (0.0-4.3) 01/27/22 05:14 Baso % (Auto) 0.8 % (0.0-1.8) 01/27/22 05:14 Lymph # (Auto) 0.9 K/mm3 (1.2-5.4) L 01/27/22 05:14 [place] # (Auto) 0.6 K/mm3 (0.0-0.8) 01/27/22 05:14 Eos # (Auto) 0.1 K/mm3 (0.0-0.4) 01/27/22 05:14 Baso # (Auto) 0.1 K/mm3 (0.0-0.1) 01/27/22 05:14 Seg Neutrophils % 81.7 % (40.0-70.0) H 01/27/22 05:14 Seg Neutrophils # 7.1 K/mm3 (1.8-7.7) 01/27/22 05:14 PT 15.1 Sec. (12.2-14.9) H 01/24/22 18:36 INR 1.07 (0.87-1.13) 01/24/22 18:36 APTT 52.4 Sec. (24.2-36.6) H 01/24/22 18:36 Thrombin Time 15.7 Sec. (15.1-19.6) 01/24/22 18:36 Sodium 137 mmol/L (137-145) 01/28/22 05:58 Potassium 3.4 mmol/L (3.6-5.0) L 01/28/22 05:58 Chloride 100.8 mmol/L (98-107) 01/28/22 05:58 Carbon Dioxide 22 mmol/L (22-30) 01/28/22 05:58 Anion Gap 18 mmol/L 01/28/22 05:58 BUN 29 mg/dL (9-20) H 01/28/22 05:58 Creatinine 2.8 mg/dL (0.8-1.3) H 01/28/22 05:58 Estimated GFR 27 ml/min 01/28/22 05:58 BUN/Creatinine Ratio 10 % 01/28/22 05:58 Glucose 73 mg/dL (75-100) L 01/28/22 05:58 POC Glucose 101 mg/dL (70-105) 01/27/22 20:14 Calcium 9.2 mg/dL (8.4-10.2) 01/28/22 05:58 Iron 15 ug/dL (49-181) L 01/27/22 05:14 TIBC 102 mcg/dL (250-450) L 01/27/22 05:14 Ferritin 275.0 ng/mL (30.0-300.0) 01/27/22 05:14 Total Bilirubin 0.50 mg/dL (0.1-1.2) 01/24/22 19:00 AST 35 units/L (5-40) 01/24/22 19:00 ALT 13 units/L (7-56) 01/24/22 19:00 Alkaline Phosphatase 78 units/L (35-129) 01/24/22 19:00 Troponin T 0.037 ng/mL (0.00-0.029) H 01/24/22 18:36 Total Protein 7.4 g/dL (6.3-8.2) 01/24/22 19:00 Albumin 3.5 g/dL (3.9-5) L 01/24/22 19:00 Albumin/Globulin Ratio 0.0 % 01/24/22 19:00 Triglycerides 95 mg/dL (2-149) 01/24/22 18:36 Cholesterol 156 mg/dL (50-199) 01/24/22 18:36 LDL Cholesterol Direct 90 mg/dL (50-130) 01/24/22 18:36 HDL Cholesterol 43 mg/dL (40-59) 01/24/22 18:36 Cholesterol/HDL Ratio 3.62 % 01/24/22 18:36 Urine Color Yellow (Yellow) 01/25/22 08:01 Urine Turbidity Clear (Clear) 01/25/22 08:01 Specific [place] (Man) 1.010 (1.003-1.030) 01/25/22 08:01 Ur Protein (Man) 1+ mg/dL (Negative) 01/25/22 08:01 Ur Ketones (Man) 5mg/dl (Negative) 01/25/22 08:01 Urine Bilirubin (Man) Negative (Negative) 01/25/22 08:01 Urine WBC (Auto) 5.0 /HPF (0.0-6.0) 01/25/22 08:01 Urine RBC (Auto) 53.0 /HPF (0.0-6.0) 01/25/22 08:01 U Epithel Cells (Auto) < 1.0 /HPF (0-13.0) 01/25/22 08:01 Urine RBC (Manual) 2+ (Negative) 01/25/22 08:01 Urine Creatinine 114.6 mg/dL (0.1-20.0) H 01/26/22 Unknown Protein/Creatinin Ratio 0.59 01/26/22 Unknown Urine Total Protein 68 mg/dL (5-11.8) H 01/26/22 Unknown Urine Opiates Screen Negative 01/25/22 08:01 Urine Methadone Screen Negative 01/25/22 08:01 Ur Barbiturates Screen Negative 01/25/22 08:01 Ur Phencyclidine Scrn Negative 01/25/22 08:01 Ur Amphetamines Screen Negative 01/25/22 08:01 U Benzodiazepines Scrn Negative 01/25/22 08:01 Urine Cocaine Screen Negative 01/25/22 08:01 U Marijuana (THC) Screen Positive 01/25/22 08:01 Drugs of Abuse Note Disclamer 01/25/22 08:01 Blood Type O POSITIVE 01/27/22 16:20 Antibody Screen Negative 01/27/22 16:20 Crossmatch See Detail 01/27/22 16:20 Babin/IV: Voiding Method Urinal Active Medications - Current Medications Current Medications: Generic Name Dose Route Start Last Admin Trade Name Freq PRN Reason Stop Dose Admin Acetaminophen 650 mg 01/24/22 22:55 01/26/22 09:51 Acetaminophen 325 Mg Tab PO 650 mg Q4H PRN Administration Pain, Mild (1-3) Aspirin 325 mg 01/25/22 10:00 01/28/22 09:36 Aspirin 325 Mg Tab PO 325 mg QDAY ROBERTO CARLOS Administration Atorvastatin Calcium 40 mg 01/25/22 22:30 01/27/22 21:06 Atorvastatin 20 Mg Tab PO 40 mg QHS ROBERTO CARLOS Administration Bisacodyl 10 mg 01/24/22 22:55 Bisacodyl 10 Mg Rect Supp TX QDAY PRN Constipation Heparin Sodium (Porcine) 5,000 unit 01/25/22 06:00 01/28/22 05:37 Heparin 5,000 Unit/1 Ml Vial SUB-Q 5,000 unit Q8HR ROBERTO CARLOS Administration Sodium Chloride 1,000 mls @ 75 mls/hr 01/26/22 09:30 01/28/22 03:47 Nacl 0.9% 1000 Ml IV 75 mls/hr DIRECT ROBERTO CARLOS Administration Magnesium Hydroxide 30 ml 01/24/22 22:55 Magnesium Hydroxide (Mom) Oral Liqd Udc PO Q4H PRN Constipation Morphine Sulfate 2 mg 01/24/22 22:55 Morphine 2 Mg/1 Ml Inj IV Q4H PRN Pain, Moderate (4-6) Morphine Sulfate 4 mg 01/24/22 22:55 Morphine 4 Mg/1 Ml Inj IV Q4H PRN Pain , Severe (7-10) Ondansetron HCl 4 mg 01/24/22 22:55 Ondansetron 4 Mg/2 Ml Inj IV Q8H PRN Nausea And Vomiting Pantoprazole Sodium 40 mg 01/27/22 18:00 01/28/22 09:36 Pantoprazole 40 Mg Tab PO 40 mg QDAC ROBERTO CARLOS Administration Potassium Chloride 40 meq 01/28/22 08:08 01/28/22 09:36 Potassium Chloride Er 20 Meq Tab PO 01/28/22 15:00 40 meq ONCE NR Administration Promethazine HCl 12.5 mg 01/27/22 17:00 01/28/22 05:41 Promethazine 12.5 Mg/10 Ml Oral Liqd PO 12.5 mg Q6H ROBERTO CARLOS Administration Sodium Chloride 10 ml 01/25/22 10:00 01/28/22 09:36 Sodium Chloride 0.9% 10 Ml Flush Syringe IV 10 ml BID ROBERTO CARLOS Administration Sodium Chloride 10 ml 08/21/22 22:55 Sodium Chloride 0.9% 10 Ml Flush Syringe IV PRN PRN LINE FLUSH Nutrition/Malnutrition Assess - Dietary Evaluation Nutrition/Malnutrition Findings: Nutrition Notes Start: 01/25/22 12:42 Freq: Status: Active Protocol: Document 01/25/22 12:42 MELIA (Rec: 01/25/22 12:55 MELIA [id number]) Nutrition Notes Need for Assessment generated from: MD Order,Education Initial or Follow up Brief Note Current Diagnosis Acute Kidney Injury,Diabetes, Hypertension Other Pertinent Diagnosis r/o CVA. Current Diet Cardiac/Consistent Carbohydrates Diet (since B ). Height 5 ft 10 in Weight 68.039 kg [place] Body Weight (kg) 75.45 BMI 21.5 Weight change and time frame None provided at admission. Weight Status Appropriate Subjective/Other Information RD consult for nutrition education assessment. No reports available on Pt's PO intake of meals at the time , will assess at F/U. Pt is on Room Air, O2 saturation @ 100%, according to Physical Assessment History notes. Bedside swallow assessment passed on 01/25, according to Swallow Screen notes. Pt still in critical condition , not a candidate for Nutrition Education at the time, will assess feasibility on F/U. Percent of energy/protein needs met: Prescribed Cardiac/Consistent Carbohydrates Diet provides for energy/protein needs (1, 977 Kcal/86 g) during LOS. Nutrition Intervention Follow-Up By: 02/01/22 Additional Comments Nutrition education will be provided at F/U, if feasible. Continue monitoring food tolerance, %PO intake of meals , and BM.
[2022-01-29 04:09] VITALS: BP 154/71
[2022-01-29 05:51] LABS: Hematocrit 24.4 % (35.5-45.6); Hemoglobin 8.3 gm/dl (11.8-15.2)
[2022-01-29] MEDS: HEPARIN 5,000 UNIT/1 ML VIAL SUB-Q SCH (05:51)
[2022-01-29] MEDS: PROMETHAZINE 12.5 MG/10 ML ORAL LIQD PO SCH ×2 (05:51→11:44)
[2022-01-29 06:14] LABS: Calcium 9.5 mg/dL (8.4-10.2)
[2022-01-29] MEDS: SODIUM CHLORIDE 0.9% 1000 ML 1,000 ML IV SCH (08:52)
[2022-01-29] MEDS: PANTOPRAZOLE 40 MG TAB PO SCH (08:52)
[2022-01-29] MEDS: ASPIRIN 325 MG TAB PO SCH (09:55)
--- NOTE | 2022-01-29 11:22 | Discharge Summary ---
Providers - Providers Date of Admission: 01/24/22 22:55 Date of discharge: 01/29/22 Attending physician: PETEY JUNIOR MD 01/24/22 22:55 Consult to Physician [CONS] Routine Comment: Consulting Provider: TESHA VILCHIS Physician Instructions: Reason For Exam: DIZZINESS- CVA 01/24/22 22:56 Consult to Dietitian/Nutrition [CONS] Routine Physician Instructions: Reason For Exam: Reason for Consult: Nutrition Recommendations Reason for Consult: Diet education Occupational Therapy Evaluate and Treat [CONS] Routine Comment: Reason For Exam: Neuro deficits Physical Therapy Evaluation and Treat [CONS] Routine Comment: Reason For Exam: Neuro deficits 01/24/22 23:22 Consult to Physician [CONS] Routine Comment: Consulting Provider: ALEXIS CHURCHILL Physician Instructions: Reason For Exam: VIRI Primary care physician: ASIF WHITFIELD Hospitalization Reason for admission: VIRI on CKD stage III Condition: Stable Pertinent studies: Reviewed. Procedures: None. Hospital course: Patient is a 76-year-old male with past medical history of noninsulin-dependent type 2 diabetes mellitus and hypertension who presented to the ED after complaints of having decreased hearing in his right ear since the previous night. He also described having severe dizziness with positional changes and associated nausea with a decreased p.o. intake. Patient denied any trauma. In the ED, the patient was found to be hemodynamically stable. His labs were remarkable for sodium 132, bicarbonate 17, creatinine 3.7 (baseline 2.0). Neurology was consulted in the ED, and he was not deemed necessary for tPA at that time. Nephrology was consulted for management of his VIRI on CKD stage III. Patient was medically managed with IV hydration and encouraging p.o. intake. The patient was also started on PPI and antiemetics to assist with his ability to tolerate p.o. intake. The patient's hearing has since improved; however, it has not returned back to his baseline. The patient was evaluated by physical therapy who recommended outpatient PT. The patient is medically clear for discharge. The patient will follow up with ENT in the outpatient setting. Disposition: 01 HOME / SELF CARE / HOMELESS Final Discharge Diagnosis (Prints w/discharge instructions): VIRI on CKD stage III, hypertension, noninsulin-dependent type 2 diabetes mellitus, iron deficiency anemia, polysubstance dependence Time spent for discharge: 45 min Core Measure Documentation - Palliative Care Palliative Care/ Comfort Measures: Not Applicable - Core Measures Any of the following diagnoses?: none Exam - Constitutional Vitals: Temp Pulse Resp BP Pulse Ox 98.6 F 78 16 154/71 97 01/29/22 03:42 01/29/22 03:42 01/29/22 03:42 01/29/22 03:42 01/29/22 03:42 General appearance: Present: no acute distress, well-nourished - EENT Eyes: Present: PERRL, EOM intact ENT: hearing intact, clear oral mucosa, dentition normal - Neck Neck: Present: supple, normal ROM - Respiratory Respiratory effort: normal Respiratory: bilateral: CTA - Cardiovascular Rhythm: regular Heart Sounds: Present: S1 & S2 - Extremities Extremities: no ischemia, pulses intact, pulses symmetrical, No edema, normal temperature, normal color Peripheral Pulses: within normal limits - Abdominal General gastrointestinal: Present: soft, non-tender, non-distended, normal bowel sounds Male genitourinary: Present: deferred - Rectal Rectal Exam: deferred - Integumentary Integumentary: Present: clear, warm, dry - Musculoskeletal Musculoskeletal: strength equal bilaterally - Psychiatric Psychiatric: appropriate mood/affect, intact judgment & insight, memory intact, cooperative - Neurologic Neurologic: CNII-XII intact, moves all extremities - Allied Health Allied health notes reviewed: nursing Plan Activity: advance as tolerated Diet: low salt, diabetic Additional Instructions: Patient is a 76-year-old male with past medical history of noninsulin-dependent type 2 diabetes mellitus and hypertension who presented to the ED after complaints of having decreased hearing in his right ear since the previous night. He also described having severe dizziness with positional changes and associated nausea with a decreased p.o. intake. Patient denied any trauma. In the ED, the patient was found to be hemodynamically stable. His labs were remarkable for sodium 132, bicarbonate 17, creatinine 3.7 (baseline 2.0). Neurology was consulted in the ED, and he was not deemed necessary for tPA at that time. Nephrology was consulted for management of his VIRI on CKD stage III. Patient was medically managed with IV hydration and encouraging p.o. intake. The patient was also started on PPI and antiemetics to assist with his ability to tolerate p.o. intake. The patient's hearing has since improved; however, it has not returned back to his baseline. The patient was evaluated by physical therapy who recommended outpatient PT. The patient is medically clear for discharge. The patient will follow up with ENT in the outpatient setting. Care Plan Goals: Patient is medically cleared for discharge. Assessment: Patient is a 76-year-old male with past medical history of noninsulin-dependent type 2 diabetes mellitus and hypertension who presented to the ED after complaints of having decreased hearing in his right ear since the previous night. He also described having severe dizziness with positional changes and associated nausea with a decreased p.o. intake. Patient denied any trauma. In the ED, the patient was found to be hemodynamically stable. His labs were remarkable for sodium 132, bicarbonate 17, creatinine 3.7 (baseline 2.0). Neurology was consulted in the ED, and he was not deemed necessary for tPA at that time. Nephrology was consulted for management of his VIRI on CKD stage III. Patient was medically managed with IV hydration and encouraging p.o. intake. The patient was also started on PPI and antiemetics to assist with his ability to tolerate p.o. intake. The patient's hearing has since improved; however, it has not returned back to his baseline. The patient was evaluated by physical therapy who recommended outpatient PT. The patient is medically clear for discharge. The patient will follow up with ENT in the outpatient setting. Follow up with: ASIF WHITFIELD MD [Primary Care Provider] - 7 Days MILDRED LOVE MD [Staff Physician] - 7 Days Forms: Accompanied Note Prescriptions: AtorvaSTATin [Lipitor] 40 mg PO QHS #30 tablet Promethazine [Phenergan] 12.5 mg PO Q8HR PRN #30 tab PRN Reason: Nausea Pantoprazole [Protonix TAB] 40 mg PO QDAC #30 tablet
[2022-02-02 19:52] LABS: Myeloperoxidase Antibody 23.6 AI (<1.0)
== END 2022-01-29 13:00 | disposition home or self-care (01) | DRG 812 ==
LOC: ED 17:51 → 4A 22:55
PROVIDERS: ADMIT Internal Medicine Geriatric Medicine; ATTEND Student in an Organized Health Care Education/Training Program
PROC: 30233N1 Transfusion of Nonautologous Red Blood Cells into Peripheral Vein, Percutaneous Approach (ICD-10-PCS; principal; 2022-01-27)
DX: D50.9 Iron deficiency anemia, unspecified (principal); N17.9 Acute kidney failure, unspecified; N18.30 Chronic kidney disease, stage 3 unspecified; I12.9 Hypertensive chronic kidney disease with stage 1 through stage 4 chronic kidney disease, or unspecified chronic kidney disease; E11.22 Type 2 diabetes mellitus with diabetic chronic kidney disease; E78.5 Hyperlipidemia, unspecified; N40.0 Benign prostatic hyperplasia without lower urinary tract symptoms; R77.8 Other specified abnormalities of plasma proteins; H93.11 Tinnitus, right ear; H91.91 Unspecified hearing loss, right ear; R31.29 Other microscopic hematuria; F12.20 Cannabis dependence, uncomplicated; Z88.8 Allergy status to other drugs, medicaments and biological substances; Z91.030 Bee allergy status; Z79.84 Long term (current) use of oral hypoglycemic drugs; R80.9 Proteinuria, unspecified
CPT/HCPCS: 36415; 70450; 70496; 70498; 70551; 71045; 76770; 80048; 80053; 80061; 80307; 81001; 82570; 82728; 82962; 83520; 83550; 84156; 84484; 85014; 85018; 85025; 85610; 85670; 85730; 86021; 86160; 86334; 86850; 86900; 86901; 86920; 93005; 93306; 93880; 99285; G0378; C8929; J1644; J7030; J7040; P9016; Q0169; Q9967